=== PATIENT | male | born 1940 | race Caucasian/White ===

== ENCOUNTER → 2017-03-04 | Outpatient (CLI) | payer MEDICARE, OTHER ==
[~2017-03-04] MED LIST: AMBIEN 5 MG TABL5 M1 PO; ASPIR 8181 MG PO; ASPIRIN EC325 M1; ASPIRIN81 M2 PO; ATORVASTATIN CA10 MG PO; BUSPIRONE HCL10 MG PO; CARDIZEM CD360 MG PO; CELEXA 20 MG TA20 MG PO; CENTRUM SILVER1 EAC4 PO; CO Q-10100 MG PO; COQ-10100 MG PO; COZAAR 25 MG TA25 M2 PO; FLOMAX0.4 MG PO; HYDROCODON-ACE1 EAC7 PO; KEFLEX500 MG PO; LASIX 20 MG TAB20 MG PO; LASIX 40 MG TAB40 M1 PO; LASIX 40 MG TAB40 M2 PO; LIPITOR40 MG PO; LOPRESSOR25 PO; MICARDIS 20MG T20 M1 PO; MICARDIS40 MG PO; NEURONTIN 300300 M1 PO; NORCO 5-325 TA1 EACH PO; OMEGA 3-6-9 CO1 EACH PO; ONDANSETRON HCL4 M2 PO; OXYCODONE HCL 55 MG; PACERONE 200 M200 M1 PO; PRILOSEC 20 MG20 MG PO; PROBIOTIC1 EAC1 PO; PROZAC10 MG PO; REQUIP 0.25 M0.25 MG PO; XARELTO10 M1
== END ==
LOC: M.MRI 02-25 13:27
DX: M48.061 Spinal stenosis, lumbar region without neurogenic claudication (principal); M51.26 Other intervertebral disc displacement, lumbar region; M47.896 Other spondylosis, lumbar region; M41.86 Other forms of scoliosis, lumbar region; I25.10 Atherosclerotic heart disease of native coronary artery without angina pectoris; I48.91 Unspecified atrial fibrillation; I10 Essential (primary) hypertension; E78.5 Hyperlipidemia, unspecified; Z86.73 Personal history of transient ischemic attack (TIA), and cerebral infarction without residual deficits

== ENCOUNTER 2018-03-18 14:46 | Emergency (ER) | payer MEDICARE, OTHER ==
[~2018-03-18] VITALS: Ht 167.6 cm; Wt 87.5 kg
[2018-03-18 16:30] VITALS: BP 149/66
== END 2018-03-18 16:30 | disposition home or self-care (01) ==
LOC: M.ERS 14:46
DX: S01.01XA Laceration without foreign body of scalp, initial encounter (principal); I10 Essential (primary) hypertension; K21.9 Gastro-esophageal reflux disease without esophagitis; F32.9 Major depressive disorder, single episode, unspecified; Z86.73 Personal history of transient ischemic attack (TIA), and cerebral infarction without residual deficits; Z98.890 Other specified postprocedural states; Z96.652 Presence of left artificial knee joint; Z96.649 Presence of unspecified artificial hip joint; W01.198A Fall on same level from slipping, tripping and stumbling with subsequent striking against other object, initial encounter; Y92.009 Unspecified place in unspecified non-institutional (private) residence as the place of occurrence of the external cause; Y93.89 Activity, other specified; Y99.8 Other external cause status

== ENCOUNTER 2019-01-10 11:48 | Observation (INO) | payer MEDICARE, OTHER ==
[2019-01-10] VITALS (12 sets, daily range): BP systolic 133–177; BP diastolic 69–118
[~2019-01-10] VITALS: Ht 167.6 cm; Wt 96.6 kg
--- NOTE | ~2019-01-10 | H ---
[address] [address] HISTORY AND PHYSICAL Name: DEMETRICE PAYNE Room: [address] Florentin Sarah#: [id number] Admission: 01/10/19 Attend Phys: Marcin Vasques MD, Discharge: 01/11/19 Date of : 44 Report #: [id number] THIS REPORT FOR: //name// Please refer to the History and Physical performed in the physician's office. By: [id number] Records Staff ALEXIA /SARA
[~2019-01-10 11:48] MED LIST changes: +NORVASC 2.5 MG2.5 M1 PO; -OMEGA 3-6-9 CO1 EACH PO; +OMEGA 3-6-9 CO400 MG PO; +PROZAC10 M1 PO
[2019-01-10 13:18] LABS: HEMOGLOBIN 16.7 gm/dL (14.0-18.0); MCH 30.7 pg (26.0-34.0); MCHC 34.1 g/dL (28.0-37.0); MCV 90.2 fL (80.0-100.0); MPV 9.9 fl. (7.2-11.1); RBC 5.44 mil/uL (4.50-6.00); RDW-CV 13.8 % (10.5-14.5); WBC 11.7 thou/uL (4.0-11.0)
[2019-01-10 13:30] LABS: ANION GAP 11 mmol/L (7-16); BUN 17 mg/dL (7-18); CHLORIDE 102 mmol/L (98-107); CO2 24 mmol/L (21-32); CREATININE 1.2 mg/dL (0.6-1.3); GLUCOSE 90 mg/dL (70-99); POTASSIUM 4.6 mmol/L (3.5-5.1); SODIUM 137 mmol/L (136-145)
[2019-01-10 13:32] LABS: APTT 25.2 Seconds (25.0-31.3); PROTIME 10.6 Seconds (9.20-11.50)
[2019-01-10 13:35] LABS: ALBUMIN 3.7 g/dL (3.4-5.0); ALKALINE PHOSPHATASE 84 U/L (46-116); CHOLESTEROL 185 mg/dL (<200); HDL CHOLESTEROL 39 mg/dL (>40); LDL CHOLESTEROL 114 mg/dL (<100); SGOT 25 U/L (15-37); SGPT 31 U/L (30-65); TC:HDL 4.7 Ratio (Not establshd); TOTAL BILIRUBIN 0.7 mg/dL (<0.1-1.0); TOTAL PROTEIN 7.5 g/dL (6.4-8.2); TRIGLYCERIDE 161 mg/dL (<150); VLDL 32 mg/dL (<40)
[2019-01-10 13:37] LABS: SERUM ASSESSMENT Clear
[2019-01-11] VITALS (7 sets, daily range): BP systolic 139–154; BP diastolic 60–85
[2019-01-11 04:34] LABS: HEMATOCRIT 48.9 % (42.0-52.0); HEMOGLOBIN 16.5 gm/dL (14.0-18.0); MCH 30.6 pg (26.0-34.0); MCHC 33.7 g/dL (28.0-37.0); MCV 90.9 fL (80.0-100.0); MPV 9.2 fl. (7.2-11.1); RBC 5.38 mil/uL (4.50-6.00); RDW-CV 13.3 % (10.5-14.5); WBC 13.2 thou/uL (4.0-11.0)
[2019-01-11 05:04] LABS: ALBUMIN 3.3 g/dL (3.4-5.0); CALCIUM 9.4 mg/dL (8.5-10.1); CREATININE 1.4 mg/dL (0.6-1.3); POTASSIUM 4.8 mmol/L (3.5-5.1); TOTAL BILIRUBIN 1.3 mg/dL (<0.1-1.0); TOTAL PROTEIN 7.1 g/dL (6.4-8.2); TROPONIN-I LEVEL 0.48 ng/mL (<0.06)
--- NOTE | 2019-01-11 08:05 | NUR ---
ASSUMED PATIENT CARE AT 1900. ASSESSMENT COMPLETED CHARTED. PATIENT IS SB/1D ON THE MONITOR. RIGHT GROIN DRESSING IS CDI. HOURLY ROUNDING IN PLACE FOR PAIENT SAFETY. CLWR.
--- NOTE | 2019-01-11 10:59 | EKG ---
[place] [address] ELECTROCARDIOGRAM REPORT Name: DEMETRICE PAYNE Room: [address]#: [id number] Admission: 01/10/19 Attend Phys: Marcin Vasques MD, Discharge: Date of : 42 Report #: [id number] THIS REPORT FOR: //name// [place] Test Date: 2019-01-10 Test Time: 13:33:07 Pat Name: DEMETRICE PAYNE Department: Room: [facility] Gender: M Junior Marketing Associate: : 1940 Requested By: Marcin Vasques Order Number: [id number] Yovana MD: Darren Gonzalez Measurements Intervals [place] Rate: 57 P: 27 VA: 243 QRS: -9 QRSD: 90 T: 65 QT: 461 QTc: 449 Interpretive Statements Sinus rhythm Premature atrial complexes with aberrant conduction Prolonged VA interval Compared to ECG 03/05/2016 18:07:31 Atrial premature complex(es) now present T-wave abnormality no longer present Electronically Signed On 01-11-2019 10:59:27 CHEMICAL PUMPER by Darren Gonzalez [email or web address] <ELECTRONICALLY SIGNED> By: Darren Gonzalez MD, FACC 01/11/19 1059 1333 1333 Darren Gonzalez MD, FACC /EPI
--- NOTE | 2019-01-11 11:04 | EKG ---
[place] [address] ELECTROCARDIOGRAM REPORT Name: DEMETRICE PAYNE Room: [address]R.#: [id number] Admission: 01/10/19 Attend Phys: Marcin Vasques MD, Discharge: Date of : 42 Report #: [id number] THIS REPORT FOR: //name// [facility] Test Date: 2019-01-11 Test Time: 04:02:03 Pat Name: DEMETRICE PAYNE Department: Room: [facility] Gender: M Hospice Art Therapist: JY : 1940 Requested By: Marcin Vasques Order Number: [id number] Yovana MD: Darren Gonzalez Measurements Intervals [place] Rate: 74 P: 19 MN: 246 QRS: -9 QRSD: 93 T: 78 QT: 411 QTc: 456 Interpretive Statements Sinus rhythm Prolonged [place] interval Probable left atrial enlargement Compared to ECG 03/05/2016 18:07:31 T-wave abnormality no longer present Electronically Signed On 01-11-2019 11:03:47 CARPENTER HELPER MAINTENANCE by Darren Gonzalez [email or web address] <ELECTRONICALLY SIGNED> By: Darren Gonzalez MD, [facility] 01/11/19 1103 0402 040 Darren Gonzalez MD, [facility] /EPI
[2019-01-11] MEDS ORDERED: COLACE100 MG PO ×2 (14:59→15:01)
[2019-01-11] MEDS ORDERED: BRILINTA90 MG PO (15:02)
--- NOTE | 2019-01-11 15:49 | NUR ---
IV AND TELE DISCONTINUED. PT AND SPOUSE UNDERSTAND ALL FOLLOW UP ORDERS, WILL DISCHARGE TO HOME.
--- NOTE | 2019-01-13 13:13 | CARD ---
[address] [address] CARDIAC CATH REPORT Name: DEMETRICE PAYNE Room: [address] Florentin Sarah#: [id number] Admission: 01/10/19 Attend Phys: Marcin Vasques MD, Discharge: 01/11/19 Date of : 42 Report #: [id number] THIS REPORT FOR: //name// APPROVED REPORT Study performed: 01/10/2019 16:20:29 Patient Details Patient Status: OP Room #: The patient is a 78 year-old male Event Personnel Marcin Vasques Leather Grainer, Steph Pandya Rolled Materials Worker, Moose Pal PROJECT ASST Scrub, Cori Lester RTR Monitor, Sheila Espinal Rolled Materials Worker Procedures Performed Art Access - R femoral artery Left Heart Cath Coronaries, Bypass Grafts SANDY Place w/wo Plasty Single RCA Hemostasis w/ Angioseal Indication Unstable angina Risk Factors Hypercholesterolemia, Hypertension Previous Procedures/Diagnoses Previous CABG Admission/Lab Medications/Medications given during procedure Angiomax bolus and infusion Procedure Narrative The patient was brought electively to the Cardiac Catheterization Laboratory and was prepped and draped in a sterile manner. The right femoral was infiltrated with 2% Lidocaine subcutaneous anesthesia. A Goodrich 6 FR sheath was inserted into the right femoral artery. Coronary angiography was performed using coronary diagnostic catheters. The right coronary system was accessed and visualized with a Diagnostic 3 DRC 6 Fr catheter. The left coronary system was accessed and visualized with a Diagnostic JL 4 6 Fr catheter. The left ventricle was accessed and visualized with a Diagnostic Pig 6 Fr catheter. Left ventricular/Aortic Valve gradient assessed via catheter pullback. [place] [address] CARDIAC CATH REPORT Name: DEMETRICE PAYNE Room: [address]#: [id number] Admission: 01/10/19 Attend Phys: Marcin Vasques MD, Discharge: 01/11/19 Date of : 42 Report #: [id number] projection. Pre-demployment femoral angiogram was performed . Closure device was deployed with a Fr Angioseal STS 6Fr. The patient tolerated the procedure well and there were no complications associated with the procedure. There was no hematoma. SVG was accessed and visualized with a Diagnostic JR 4 6 Fr catheter.SVG going to the Circ. LIV was accessed and visualized with a Diagnostic IM 6 Fr catheter. GARY going to LAD. Intraoperative Conscious Sedation Sedation start time: 16:50 Case end Time: 18:02 Fentanyl 50 mcg Versed 2 mg Fluoro Time: 24.7 minutes Dose: DAP [id number] cGycm2 3381 mGy Contrast Type and Amount: Visipaque 405 ml [place] Artery Percent Stenosis #1 widely patent GARY graft to the LAD #2 patent saphenous vein graft to marginal branch of the circumflex with 60% tubular proximal graft narrowing Diagnostic Cath Left Main 0% narrowing LAD 100% mid vessel occlusion Circumflex 100% narrowing of the marginal system 90% focal stenosis of the midportion of the posterior division of the circumflex Right Coronary Large dominant vessel with 95% ostial proximal stenosis 75% tubular mid vessel narrowing 80% focal distal narrowing and 90% narrowing of a posterolateral branch of the distal right coronary artery Left Ventriculography The left ventricle is normal in size with normal contractility. The left ventricular ejection fraction is estimated to be 55%. Left ventricular wall motion abnormalities are not present. There is no mitral insufficiency. Hemodynamics The aortic pressure is 140/55 mmHg with a mean of 93 mmHg. The left ventricular pressure is 153/-3 mmHg with a mean of mmHg. The left ventricular end diastolic pressure is 15 mmHg. There was no gradient across the aortic valve upon pullback[place] [address] CARDIAC CATH REPORT Name: DEMETRICE PAYNE Room: [address]#: [id number] Admission: 01/10/19 Attend Phys: Marcin Vasques MD, Discharge: 01/11/19 Date of : 42 Report #: [id number] Anticoagulation was achieved with Angiomax Drip. Patient was preloaded with Angiomax IV 14 ml. Percutaneous coronary intervention was performed on the ostial/proximal right coronary artery. The lesion stenosis prior to intervention was 95% with ADITI 3 flow. A 6FR 3DRC SH Guide Catheter was used to engage the right ostium. A IG: ProwaterFlex 180CM Interventional Guidewire was used to cross the lesion. BALLOON DILATION A Balloon catheter Mini Trek RX 2.0 X 12 was inserted and inflated up to 16.00atm for 12seconds. Additional Inflation: 20.00atm for 11seconds. Additional Inflation: 20.00atm for 10seconds. Trek RX 2.5 x 15 inserted/inflated for 9 sec @ 14 ZAIN, 9 sec @ 20 ZAIN, and 10 sec @ 20 ZAIN STENT DEPLOYMENT A drug-eluting stent Scribdronik Orsiro 3.0 x 15 was inserted and inflated up to 16.00atm for 13seconds. Additional Inflation: 18.00atm for 14seconds. POST STENT DEPLOYMENT BALLOON DILATION A Balloon catheter NC TREK RX 3.5X12 was inserted and inflated up to 16.00atm for 8seconds. Additional Inflation: 16.00atm for 9seconds. Additional Inflation: 18.00atm for 9seconds. Final angiography reveals 10 % stenosis with ADITI 3 flow. COMMENTS The procedure was technically complex by virtue of the aorto-ostial complex lesion requiring extensive lesion preparation and precise stent deployment localization PCI Technique Lesion 2 Percutaneous Coronary Intervention was performed on the mid right coronary artery. Patient was preloaded with Angiomax IV 14 ml. The lesion stenosis prior to intervention was 75% with ADITI 3 flow. A 6FR 3DRC SH Guide Catheter was used to engage the right ostium. A IG: ProwaterFlex 180CM Interventional Guidewire was used to cross the lesion. Balloon Dilation A Balloon catheter Trek RX 2.5 X 15 was inserted and inflated up to 16.00atm for 11seconds. Additional Inflation: 16.00atm for 9seconds. [place] [address] CARDIAC CATH REPORT Name: DEMETRICE PAYNE Room: [address] Florentin LuisanaDeborahHaimDeborah#: [id number] Admission: 01/10/19 Attend Phys: Marcin Vasques MD, Discharge: 01/11/19 Date of : 42 Report #: [id number] Stent Deployment A drug-eluting stent Biotronik Orsiro 2.75 x 35 was inserted and inflated up to 15.00atm for 21seconds. Additional Inflation: 18.00atm for 14seconds. Post Stent Deployment Balloon Dilation A Balloon catheter NC Trek RX 3.0 X 12 was inserted and inflated up to 12.00atm for 8seconds. Additional Inflation: 16.00atm for 6seconds. Additional Inflation: 16.00atm for 8seconds. Final angiography reveals 0 % stenosis with ADITI 3 flow. Conclusion #1 significant multivessel coronary arteries characterized by the following: A 100% mid LAD occlusion B 100% occlusion of the marginal branch of the circumflex with 90% focal mid circumflex narrowing C 95% aorto- ostial stenosis of the dominant right coronary artery with 75% tubular mid vessel narrowing 80% focal distal stenosis and 90% posterolateral branch narrowing #2 graft study characterized by the following: A widely patent GARY graft to the LAD with faint collateralization to the distal right coronary artery B patent saphenous vein graft to the marginal branch of the circumflex with 60% proximal graft narrowing #3 normal left ventricular systolic function, estimate ejection fraction being 55% #4 successful percutaneous coronary intervention with deployment of sequential drug-eluting stents at the sites of 95% aorto- ostial right coronary stenosis and 75% tubular mid right coronary stenosis with 10 and 0% residual narrowings Recommendations Cardiac Risk Reduction Program [facility] Therapy [address] [address] CARDIAC CATH REPORT Name: DEMETRICE PAYNE Paige Room: [address] MDeborahRDeborah#: [id number] Admission: 01/10/19 Attend Phys: Marcin Vasques MD, Discharge: 01/11/19 Date of : 42 Report #: [id number] Medications Administered Aspirin (any) Ticagrelor Diagnostic Cath Approved by: Marcin Vasques MD Date/Time: <ELECTRONICALLY SIGNED> By: Marcin Vasques MD, FACC 01/13/191311 11 11Marcin Vasques MD, FACC /INF
--- NOTE | 2019-01-13 15:31 | D ---
[address] [address] DISCHARGE SUMMARY Name: DEMETRICE PAYNE Room: [address] Florentin Sarah#: [id number] Admission: 01/10/19 Attend Phys: Marcin Vasques MD, Discharge: 01/11/19 Date of : 42 Report #: [id number] THIS REPORT FOR: //name// CC: Marcin Burch DATE OF SERVICE: 01/11/2019 FINAL DISCHARGE DIAGNOSES: 1. Unstable angina. 2. Coronary artery disease. 3. Status post coronary artery bypass grafting remotely. 4. Status post percutaneous coronary intervention of the right coronary artery on 01/10/2019. 5. Hypertension. 6. Paroxysmal atrial fibrillation. 7. Hyperlipidemia. 8. History of cerebrovascular accident. PROCEDURES: On 01/10/2019 -- left heart catheterization, left ventriculography, selective coronary arteriography, graft study, and percutaneous coronary intervention to the right coronary artery with stents deployed in the proximal and mid right coronary artery. HOSPITAL COURSE: The patient is a very pleasant 78-year-old male with a history of coronary artery disease, status post remote coronary artery bypass grafting. He has hypertension, hyperlipidemia and history of cerebrovascular accident as well as paroxysmal atrial fibrillation. Recently, he has noted chest discomfort and dyspnea on exertion, typical of his prior ischemic syndrome. In this setting, Dr. Rivera recommend catheterization, which was undertaken on 01/10/2019. That study revealed totally occluded LAD, 80-90% stenosis in the mid portion of the posterior division of the circumflex with a patent vein graft to the marginal branch of the circumflex, widely patent GARY graft to the LAD. Right coronary artery demonstrated 95% ostial stenosis with 70-80% mid vessel narrowing. Given this data, I performed percutaneous coronary intervention, deploying drug-eluting stents in the mid and proximal right coronary artery with 10% residual narrowing at both sites following stent deployment and ADITI 3 flow of the distal vessel. Troponin zeeshan inconsequentially to 0.48. Laboratory data on 01/11 revealed sodium 140, potassium 4.8, BUN 18, creatinine 1.4. Hemoglobin 16.5, white blood cell count 13,200 with 213,000 [place] [address] DISCHARGE SUMMARY Name: KERRYDEMETRICE Room: [address]#: [id number] Admission: 01/10/19 Attend Phys: Marcin Vasques MD, Discharge: 01/11/19 Date of : 42 Report #: [id number] The patient ambulated in the hallways without difficulty. DISCHARGE MEDICATIONS: He was discharged to home on the following medications: Amlodipine 5 mg daily, aspirin 81 mg at bedtime, atorvastatin 10 mg daily, buspirone 5 mg b.i.d., fish oil 1 tablet daily, Prozac 10 mg at bedtime, gabapentin 300 mg t.i.d., metoprolol 25 mg b.i.d., multivitamin [place] Silver 1 tablet daily, omeprazole 20 mg daily, ropinirole 0.25 mg at bedtime, telmisartan 20 mg daily, ticagrelor 90 mg b.i.d., Coenzyme Q 200 mg daily, zolpidem 5 mg at bedtime. The patient is tentatively scheduled for recatheterization on 01/26/2019 with strong consideration of intervention to the posterior division of the circumflex. These issues were discussed in detail with the patient and family. He is discharged to home in stable condition on the aforementioned medications with followup as described above. <ELECTRONICALLY SIGNED> By: Marcin Vasques MD, FACC 01/13/19 1531 1441 1517Marcin Vasques MD, FACC /nt
== END 2019-01-11 16:00 | disposition home or self-care (01) ==
LOC: M.CL 11:48 → M.TBA-ER 18:21 → M.2W 18:30
PROVIDERS: ADMIT Internal Medicine
DX: I25.110 Atherosclerotic heart disease of native coronary artery with unstable angina pectoris (principal); I48.0 Paroxysmal atrial fibrillation; I10 Essential (primary) hypertension; E78.5 Hyperlipidemia, unspecified; Z86.73 Personal history of transient ischemic attack (TIA), and cerebral infarction without residual deficits; Z79.82 Long term (current) use of aspirin; Z79.899 Other long term (current) drug therapy

== ENCOUNTER 2019-01-26 08:38 | Observation (INO) | payer MEDICARE, OTHER ==
[2019-01-26] VITALS (14 sets, daily range): BP systolic 112–149; BP diastolic 52–83
[~2019-01-26] VITALS: Ht 165.1 cm; Wt 88.5 kg
--- NOTE | ~2019-01-26 | H ---
[address] [address] HISTORY AND PHYSICAL Name: DEMETRICE PAYNE Room: [address] Florentin Sarah#: [id number] Admission: 01/26/19 Attend Phys: Marcin Vasques MD, Discharge: 01/27/19 Date of : 44 Report #: [id number] THIS REPORT FOR: //name// Please refer to the History and Physical performed in the physician's office. By: 1455Medical Records Staff ALEXIA /SARA
[~2019-01-26 08:38] MED LIST changes: +BRILINTA90 MG PO; +COLACE100 MG PO; -PRILOSEC 20 MG20 MG PO; +PRILOSEC OTC20 MG PO; +PROZAC 10 MG CA10 MG PO; -PROZAC10 MG PO
[2019-01-26 10:43] LABS: HEMATOCRIT 47.9 % (42.0-52.0); HEMOGLOBIN 16.7 gm/dL (14.0-18.0); MCH 31.1 pg (26.0-34.0); MCHC 34.8 g/dL (28.0-37.0); MCV 89.4 fL (80.0-100.0); MPV 9.3 fl. (7.2-11.1); RBC 5.36 mil/uL (4.50-6.00); RDW-CV 13.4 % (10.5-14.5); WBC 10.4 thou/uL (4.0-11.0)
[2019-01-26 10:52] LABS: ANION GAP 11 mmol/L (7-16); BUN 20 mg/dL (7-18); CALCIUM 8.7 mg/dL (8.5-10.1); CHLORIDE 104 mmol/L (98-107); CO2 22 mmol/L (21-32); CREATININE 1.3 mg/dL (0.6-1.3); GLUCOSE 97 mg/dL (70-99); POTASSIUM 4.2 mmol/L (3.5-5.1); SODIUM 137 mmol/L (136-145)
[2019-01-26 10:54] LABS: APTT 26.1 Seconds (25.0-31.3); INR 1.1
[2019-01-26 10:57] LABS: CHOLESTEROL 138 mg/dL (<200); HDL CHOLESTEROL 37 mg/dL (>40); LDL CHOLESTEROL 80 mg/dL (<100); SERUM ASSESSMENT Clear; TC:HDL 3.7 Ratio (Not establshd); TRIGLYCERIDE 107 mg/dL (<150); VLDL 21 mg/dL (<40)
--- NOTE | 2019-01-26 14:15 | EKG ---
[place] [address] ELECTROCARDIOGRAM REPORT Name: DEMETRICE PAYNE Room: [address] M.R.#: [id number] Admission: 01/26/19 Attend Phys: Marcin Vasques MD, Discharge: Date of : 42 Report #: [id number] THIS REPORT FOR: //name// [facility] Test Date: 2019-01-26 Test Time: 09:33:53 Pat Name: DEMETRICE PAYNE Department: Room: [facility] Gender: M Humanities Coordinator: : 1940 Requested By: Marcin Vasques Order Number: [id number] Yovana MD: Marcin Vasques Measurements Intervals [place] Rate: 63 P: 29 NM: 258 QRS: -16 QRSD: 97 T: 41 QT: 409 QTc: 419 Interpretive Statements Sinus rhythm PVC is noted Prolonged [place] interval Inferior infarct, old Baseline wander in lead(s) V3 Compared to ECG 01/11/2019 04:02:03 Myocardial infarct finding now suggested Electronically Signed On 01-26-2019 14:14:52 AUTOMOTIVE SALES MANAGER by Marcin Vasques [email or web address] <ELECTRONICALLY SIGNED> By: Marcin Vasques MD, [facility] 01/26/19 1414 0933 0933 Marcin Vasques MD, [facility] /EPI
--- NOTE | 2019-01-26 14:19 | EKG ---
[place] [address] ELECTROCARDIOGRAM REPORT Name: DEMETRICE PAYNE Room: [address] M.R.#: [id number] Admission: 01/26/19 Attend Phys: Marcin Vasques MD, Discharge: Date of : 42 Report #: [id number] THIS REPORT FOR: //name// [facility] Test Date: 2019-01-26 Test Time: 13:26:02 Pat Name: DEMETRICE PAYNE Department: Room: [facility] Gender: M Trailer Driver: : 1940 Requested By: Marcin Vasques Order Number: [id number] Yovana MD: Marcin Vasques Measurements Intervals [place] Rate: 60 P: 6 [place]: 247 QRS: -4 QRSD: 92 T: 69 QT: 441 QTc: 441 Interpretive Statements Sinus rhythm Prolonged [place] interval Borderline T wave abnormalities Compared to ECG 01/11/2019 04:02:03 T-wave abnormality now present Electronically Signed On 01-26-2019 14:18:56 DELIVERY CREW MEMBER by Maricn Vasques [email or web address] <ELECTRONICALLY SIGNED> By: Marcin Vasques MD, [facility] 01/26/19 1418 1326 132 Marcin Vasques MD, FAC /EPI
--- NOTE | 2019-01-26 15:00 | CARD ---
[address] [address] CARDIAC CATH REPORT Name: DEMETRICE PAYNE Room: [address] Florentin Sarah#: [id number] Admission: 01/26/19 Attend Phys: Marcin Vasques MD, Discharge: Date of : 44 Report #: [id number] THIS REPORT FOR: //name// APPROVED REPORT Study performed: 01/26/2019 10:59:[address] Vasques Procedures Performed Left heart catheterization selective coronary arteriography and percutaneous coronary intervention with deployment of a drug-eluting stent in the mid circumflex Indication Dyspnea, Positive stress test Risk Factors Hypercholesterolemia, Hypertension Previous Procedures/Diagnoses Previous CABGPrevious PCI Admission/Lab Medications/Medications given during procedure Angiomax bolus and infusion Procedure Narrative The patient was brought electively to the Cardiac Catheterization Laboratory and was prepped and draped in a sterile manner. The right femoral was infiltrated with subcutaneous anesthesia. A 6 [place] sheath was inserted into the right femoral artery. Coronary angiography was performed using coronary diagnostic catheters. The right coronary system was accessed and visualized with a Diagnostic catheter. The left coronary system was accessed and visualized with a Diagnostic catheter. The left ventricle was accessed and visualized with a Diagnostic catheter. Left ventricular/Aortic Valve gradient assessed via catheter pullback. Pre-demployment femoral angiogram was performed . Hemostasis was obtained with manual pressure following sheath removal without any complications. [place] Artery Percent Stenosis #1 widely patent GARY graft to the LAD as per recent cineangiogram [facility] [address] [place] [address] CARDIAC CATH REPORT Name: KERRYDEMETRICE Paige Room: [address]#: [id number] Admission: 01/26/19 Attend Phys: Marcin Vasques MD, Discharge: Date of : 44 Report #: [id number] #2 previously defined patent vein graft to a marginal branch of the circumflex with 50% proximal graft narrowing Diagnostic Cath Left Main 0% narrowing LAD 100% mid vessel occlusion Circumflex 90% mid circumflex stenosis with total occlusion of the marginal system Right Coronary 10% proximal right coronary narrowing with widely patent proximal and mid right coronary stents; ; there was 70% distal right coronary narrowing with 80% posterolateral branch stenosis Hemodynamics The aortic pressure is 120/70 mmHg with a mean of 82 mmHg. The left ventricular end diastolic pressure is 8 mmHg. There was no gradient across the aortic valve upon pullback. PCI Technique Lesion Anticoagulation was achieved with Angiomax. Percutaneous coronary intervention was performed on the mid circumflex artery segment. The lesion stenosis prior to intervention was 90% with ADITI 3 flow. A 6 [place] XB3 Guide Catheter was used to engage the left ostium. A 014 prowater flex Interventional Guidewire was used to cross the lesion. BALLOON DILATION A Balloon catheter 1.5x12 trek was inserted and inflated up to 18atm for 15seconds. STENT DEPLOYMENT A drug-eluting stent 2.0x12 aleksander was inserted and inflated up to 8atm for 12seconds. Final angiography reveals 0 % stenosis with ADITI 3 flow. Conclusion #1 significant coronary artery disease characterized by the following: A 100% mid LAD occlusion B 90% stenosis of the midportion of the nondominant circumflex with [place] [address] CARDIAC CATH REPORT Name: DEMETRICE PAYNE Room: [address]#: [id number] Admission: 01/26/19 Attend Phys: Marcin Vasques MD, Discharge: Date of : 44 Report #: [id number] C 10% proximal right coronary narrowing with widely patent proximal and mid right coronary stents; there was 70% distal right coronary stenosis and 80% posterolateral branch stenosis #2 previously defined widely patent GARY graft to the LAD and a patent saphenous vein graft to marginal branch of the circumflex with 50% proximal graft narrowing #3 normal left-sided hemodynamics study #4 successful percutaneous coronary intervention with deployment of a drug-eluting stent at the site of 90% mid circumflex narrowing with 0% residual narrowing and ADITI-3 flow to the distal vessel Recommendations Cardiac Risk Reduction Program Medications Administered Aspirin (any) Clopidogrel Diagnostic Cath Approved by: Marcin Vasques MD Date/Time: 01/26/2019 14:59:03 <ELECTRONICALLY SIGNED> By: Marcin Vasques MD, FACC 01/26/19 1500 1500 1500Jogeri Vasques MD, FAC /INF
[2019-01-27] VITALS: BP 134/71
[2019-01-27 04:00] VITALS: BP 122/70
[2019-01-27 05:03] LABS: HEMATOCRIT 43.7 % (42.0-52.0); MCH 31.1 pg (26.0-34.0); MCHC 34.3 g/dL (28.0-37.0); MCV 90.5 fL (80.0-100.0); MPV 10.5 fl. (7.2-11.1); RBC 4.83 mil/uL (4.50-6.00); RDW-CV 13.5 % (10.5-14.5); WBC 10.2 thou/uL (4.0-11.0)
[2019-01-27 05:24] LABS: ALBUMIN 2.9 g/dL (3.4-5.0); CALCIUM 8.2 mg/dL (8.5-10.1); CREATININE 1.2 mg/dL (0.6-1.3); POTASSIUM 4.1 mmol/L (3.5-5.1); TOTAL PROTEIN 6.2 g/dL (6.4-8.2); TROPONIN-I LEVEL 0.14 ng/mL (<0.06)
--- NOTE | 2019-01-27 06:38 | NUR ---
PT RESTED T/O NIGHT COMFORTABLY W/O COMPLAINTS. DRESSING CDI. PROGRESSING TOWARDS GOALS APPROPRIATELY. CALL LIGHT IN REACH
[2019-01-27 07:00] VITALS: BP 150/82
[2019-01-27 10:57] VITALS: BP 112/68
[2019-01-27] MEDS ORDERED: PLAVIX 75 MG TA75 MG PO (11:17)
[2019-01-27 11:18] VITALS: BP 112/68
--- NOTE | 2019-01-27 11:24 | NUR ---
cm completed initial assessment to discuss d/c planning. pt present at time of assessment. pt is living at home w/. semi-active doing chores around the house. pt is independent w/cares. pt stated he has driven in 2 wks, but plans to drive himself to his next doctor's appt. pt has hx w/SMV and OGNF. pt has no desire to return to snf, pt stated they prefer outpatient at [facility] over inpatient. pt has cane and walker. and a good support system.
--- NOTE | 2019-01-27 12:24 | NUR ---
VSS, ASSUMED CARE IN THE AM, ASSESSMENT PERFOMRED AND CHARTED FALL PRECAUTIONS IN [place] AND CALL LIGHT IN REACH, PT IS A&O4 AND UP AD KEVIN, PT IS TRACING SR/SB ON THE MONITOR, RIGHT GROIN IS C/D/I, PT DENIES ANY PAIN, AT THIS TIME PT HAS BEEN DISCHARGED PT WAS GIVEN DISCHARGE PAPERS, AND MEDICATION SCRIPTS PT DENIES ANY QUESTIONS AND WAS TAKEN OUT VIA WHEELCHAIR TO CAR.
--- NOTE | 2019-01-27 12:56 | EKG ---
[place] [address] ELECTROCARDIOGRAM REPORT Name: DEMETRICE PAYNE Room: [address]#: [id number] Admission: 01/26/19 Attend Phys: Marcin Vasques MD, Discharge: 01/27/19 Date of : 44 Report #: [id number] THIS REPORT FOR: //name// [facility] Test Date: 2019-01-27 Test Time: 05:20:17 Pat Name: DEMETRICE PAYNE Department: Room: [facility] Gender: M Stores Assistant: [id number] : 1940 Requested By: Marcin Vasques Order Number: [id number] Reading MD: Marcin Vasques Measurements Intervals [place] Rate: 66 P: 33 [place]: 255 QRS: -15 QRSD: 94 T: 11 QT: 434 QTc: 455 Interpretive Statements Sinus rhythm Prolonged [place] interval Inferior infarct, old Compared to ECG 01/26/2019 13:26:02 Myocardial infarct finding now present T-wave abnormality persists Electronically Signed On 01-27-2019 12:56:17 MEDICAL SCREENER by Marcin Vasques [email or web address] <ELECTRONICALLY SIGNED> By: Marcin Vasques MD, [facility] 01/27/19 1256 0520 Marcin Vasques MD, [facility] /EPI
--- NOTE | 2019-01-28 15:27 | D ---
[address] [address] DISCHARGE SUMMARY Name: DEMETRICE PAYNE Room: [address] Florentin Sarah#: [id number] Admission: 01/26/19 Attend Phys: Marcin Vasques MD, Discharge: 01/27/19 Date of : 44 Report #: [id number] THIS REPORT FOR: //name// CC: Marcin Burch DATE OF SERVICE: 01/27/2019 FINAL DISCHARGE DIAGNOSES: 1. Unstable angina. 2. Coronary artery disease. 3. Status post coronary artery bypass grafting. 4. Status post prior percutaneous coronary intervention of the right coronary artery and percutaneous coronary intervention to the circumflex on 01/26/2019. 5. Hypertension. 6. Paroxysmal atrial fibrillation. 7. Hyperlipidemia. 8. History of cerebrovascular accident. PROCEDURES: On 01/26/2019 -- left heart catheterization, selective coronary arteriography and percutaneous coronary intervention to the mid-circumflex. The patient is a pleasant 78-year-old male with complex coronary artery disease status post remote coronary artery bypass grafting and more recent percutaneous coronary intervention of the [place] right coronary artery. He had a patent GARY graft to the LAD and patent vein graft to marginal branch of the circumflex noted on prior catheterization. He also had 90% mid-circumflex stenosis noted on the prior cath, which was not approached in the acute setting. He underwent recatheterization on 01/26/2019, which revealed widely patent right coronary stents in the proximal midportion. He also had a persistent 90% mid-circumflex stenosis. I stented this with a 2.0 x 12 mm Darell drug-eluting stent with 0% residual narrowing and ADITI 3 flow of the distal vessel. He did well post-procedurally with an inconsequential increase in troponin to 0.14. Additional lab revealed sodium 139, potassium 4.1, BUN 18, creatinine 1.2, glucose 73. Hemoglobin 15.0, white blood cell count 10,200 with 187,000 platelets. He ambulated in the hallways without difficulty and was discharged to home on the following medications: Amlodipine 5 mg daily, aspirin 81 mg p.o. b.i.d., atorvastatin 10 mg daily, buspirone 5 mg b.i.d., clopidogrel 75 mg daily with a 600 mg stacey-procedural dose, docusate 100 mg daily, fish oil 400 mg daily, fluoxetine 10 mg at bedtime, gabapentin 300 mg t.i.d., metoprolol tartrate 25 mg b.i.d., multivitamin with mineral 1 tablet daily, omeprazole 20 mg daily, ropinirole or Requip 0.25 mg at bedtime, Coenzyme Q 200 mg daily, zolpidem 5 [place] [address] DISCHARGE SUMMARY Name: DEMETRICE PAYNE Room: [address] Florentin Sarah#: [id number] Admission: 01/26/19 Attend Phys: Marcin Vasques MD, Discharge: 01/27/19 Date of : 44 Report #: [id number] at bedtime as needed for sleep. The patient ambulated in the hallways without difficulty. The dyspnea noted in the past has remitted and I suspect this is related to the discontinuation of Brilinta and initiation of clopidogrel as a substitute for that. The patient has a followup scheduled with Jennifer Lopez on 02/18/2019 at 1300 and myself on 03/23/2019 at 1020 hours. Therefore, the patient is discharged to home in stable condition on the aforementioned medications with followup as iterated above. <ELECTRONICALLY SIGNED> By: Marcin Vasques MD, FACC 01/28/19 1527 0951 [id number] Vasques MD, FACC /nt
== END 2019-01-27 12:10 | disposition home or self-care (01) ==
LOC: M.CL 08:38 → M.TBA-CV 13:12 → M.2W 16:01
PROVIDERS: ADMIT Internal Medicine
DX: I25.119 Atherosclerotic heart disease of native coronary artery with unspecified angina pectoris (principal); I10 Essential (primary) hypertension; I48.0 Paroxysmal atrial fibrillation; E78.5 Hyperlipidemia, unspecified; Z86.73 Personal history of transient ischemic attack (TIA), and cerebral infarction without residual deficits

== ENCOUNTER 2019-06-25 03:05 | Inpatient (IN) | payer MEDICARE, OTHER ==
[~2019-06-25] VITALS: Ht 167.6 cm; Wt 90.3 kg
[2019-06-25] VITALS (7 sets, daily range): BP systolic 98–176; BP diastolic 36–83
[~2019-06-25 03:05] MED LIST changes: +PLAVIX 75 MG TA75 MG PO
[2019-06-25] MEDS ORDERED: IMDUR 30 MG TAB30 M1 PO (03:15)
[2019-06-25 03:54] LABS: ABSOLUTE LYMPHOCYTES 1.5 thou/uL (0.8-5.3); ABSOLUTE MONOCYTES 0.6 thou/uL (0.0-1.2); BASOPHILS 0.3 %; EOSINOPHILS 0.1 %; HEMATOCRIT 49.5 % (42.0-52.0); LYMPHOCYTES 11.6 %; MCH 30.9 pg (26.0-34.0); MCHC 34.4 g/dL (28.0-37.0); MCV 89.8 fL (80.0-100.0); MONOCYTES 4.3 %; MPV 9.9 fl. (7.2-11.1); NUCLEATED RBCS 0 /100WBC; PLATELET COUNT* 171 thou/uL (150-400); POLYS 83.7 %; RBC 5.51 mil/uL (4.50-6.00); RDW-CV 13.8 % (10.5-14.5); WBC 13.2 thou/uL (4.0-11.0)
[2019-06-25 04:05] LABS: CALCIUM 8.7 mg/dL (8.5-10.1); CREATININE 1.3 mg/dL (0.6-1.3); POTASSIUM 3.5 mmol/L (3.5-5.1)
[2019-06-25 04:15] LABS: ALBUMIN 3.5 g/dL (3.4-5.0); MAGNESIUM 1.4 mg/dL (1.8-2.4); TOTAL BILIRUBIN 0.7 mg/dL (<0.1-1.0)
[2019-06-25 04:16] LABS: INR 1.2; PROTIME 11.9 Seconds (9.20-11.50)
[2019-06-25 04:45] LABS: INFLUENZA A ANTIGEN Negative (Negative); INFLUENZA B ANTIGEN Negative (Negative)
[2019-06-25 13:10] LABS: CALCIUM 8.3 mg/dL (8.5-10.1); CREATININE 1.4 mg/dL (0.6-1.3); MAGNESIUM 2.3 mg/dL (1.8-2.4); POTASSIUM 3.9 mmol/L (3.5-5.1)
[2019-06-26 03:54] VITALS: BP 111/49
[2019-06-26 08:00] VITALS: BP 129/65
[2019-06-26 12:00] VITALS: BP 141/68
[2019-06-26 13:16] LABS: URINE BILIRUBIN NEGATIVE (Negative); URINE BLOOD 1+ (Negative); URINE CLARITY CLEAR; URINE COLOR YELLOW; URINE GLUCOSE-RANDOM NEGATIVE (Negative); URINE KETONES NEGATIVE (Negative); URINE LEUKOCYTES-REFLEX NEGATIVE (Negative); URINE NITRITE-REFLEX NEGATIVE (Negative); URINE PROTEIN NEGATIVE (Negative); URINE UROBILINOGEN 0.2 E.U./dl (0.2-1.0)
[2019-06-26 13:22] LABS: BACTERIA-REFLEX 1-9 Few /HPF (None Seen); CASTS None Seen /LPF (None Seen); CRYSTALS None Seen /LPF (None Seen); SQUAMOUS 0-3 Few /LPF (0-3); URINE RBC 0-2 Rare /HPF (0-2); URINE WBC-REFLEX 0-5 Rare /HPF (0-5)
--- NOTE | 2019-06-26 15:30 | EKG ---
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
[2019-06-26 16:00] VITALS: BP 134/50
[2019-06-26 21:11] VITALS: BP 149/63
[2019-06-27] VITALS: BP 138/68
[2019-06-27 04:00] VITALS: BP 144/65
[2019-06-27 08:30] VITALS: BP 141/64
[2019-06-27 12:00] VITALS: BP 137/61
[2019-06-27 17:00] VITALS: BP 143/78
[2019-06-27 18:34] LABS: CALCIUM 8.4 mg/dL (8.5-10.1); CREATININE 1.3 mg/dL (0.6-1.3); POTASSIUM 3.8 mmol/L (3.5-5.1)
[2019-06-27 18:37] LABS: PHOSPHORUS* 3.1 mg/dL (2.5-4.9)
[2019-06-27 20:40] VITALS: BP 128/69
[2019-06-28] VITALS: BP 132/61
[2019-06-28 04:00] VITALS: BP 120/56
--- NOTE | 2019-06-28 08:05 | CON ---
[address] [address] CONSULTATION Name: KERRYDEMETRICE Gibson Room: [address] IN M.R.#: [id number] Admission: 06/25/19 Attend Phys: Manisha Walter MD Discharge: Date of : 44 Report #: [id number] THIS REPORT FOR: //name// cc: Ciro Burch MD, Matthew W. MD ~ THIS REPORT FOR: //name// CC: Manisha Burch DATE OF SERVICE: 06/27/2019 INFECTIOUS DISEASE CONSULTATION ATTENDING PHYSICIAN: Manisha Walter MD REASON FOR EVALUATION: Pneumonitis, complicated by respiratory failure. The patient had initial negative COVID testing; repeat is pending. Was found to have pulmonary emboli as well. HISTORY OF PRESENT ILLNESS: Chart reviewed, the patient examined. This is a 78-year-old with extensive medical history, including known vasculopathy, previous strokes, aortocoronary bypass grafting, who had onset of dyspnea with fairly profound weakness the day before developed some fevers. Denied any significant gastrointestinal-related complaints. He was evaluated and was found to have a clear hypoxemia with O2 sat 83% on room air. He was placed on nonrebreather. Initial evaluation was undertaken. White count was slightly elevated and lactic acid within normal range. Was found to have elevated D-dimer at 4.5. Influenza antigen was negative as was screening coronavirus testing. CT of the chest did show bilateral segmental and subsegmental pulmonary emboli. Urinalysis was otherwise unremarkable. Blood cultures thus far are sterile. He is being ruled out with the 2nd testing for COVID-19. At this point, he has been afebrile. Vital signs have been relatively stable. Empirically placed on antimicrobials with ceftriaxone. He states he actually feels worse since admission. He noted had a nosebleed related to the collection of the nasopharyngeal sample. Finds it difficult to breathe. He is on 5 liters of nasal cannula. ALLERGIES: None known. CURRENT MEDICINES: Include nitroglycerin, morphine, ceftriaxone, apixaban, aspirin, fluoxetine, isosorbide mononitrate, amlodipine, metoprolol, atorvastatin, buspirone, p.r.n. analgesics, antiemetics. PAST MEDICAL HISTORY: Includes hypertension, reflux, depression, previous stroke with left foot drop, right carotid endarterectomy, bilateral cataracts, [place] [address] CONSULTATION Name: DEMETRICE PAYNE Room: [address]#: [id number] Admission: 06/25/19 Attend Phys: Manisha Walter MD Discharge: Date of : 42 Report #: [id number] left total knee replacement, aortocoronary bypass grafting. SOCIAL HISTORY: Nonsmoker. No ethanol. No illicit drug use. FAMILY HISTORY: Noncontributory. REVIEW OF SYSTEMS: Somewhat difficult to obtain due to his discomfort. Denies significant gastrointestinal-related complaints at this point. No nausea or diarrhea. PHYSICAL EXAMINATION: GENERAL: He has some tciwbkly-tm-fkktio distress. He is seemingly tracking fairly well. He is sitting kind of hunched over, gasping for breath. He is somewhat chronically ill. VITAL SIGNS: Temperature 98.8, pulse 95, respirations 18, blood pressure 141/64. SKIN: Warm, dry. No rashes. HEENT: He has got nasal cannula in place. Normocephalic. Extraocular muscles intact. NECK: Supple. LUNGS: Scattered coarse breath sounds. HEART: Distant, seemingly regular. Is borderline tachycardic. I do not appreciate a murmur. ABDOMEN: Mildly distended, soft. There are no overt peritoneal signs. GENITOURINARY AND RECTAL: Deferred. LABORATORY DATA: Blood cultures are sterile thus far. Troponin less than 0.06. Urinalysis unremarkable. CT chest as noted above: Bilateral segmental and subsegmental pulmonary emboli, extensive bilateral pulmonary airspace infiltrate consistent with pneumonia, mild mediastinal and hilar adenopathy. Coronavirus; initial test is not detected; a second test is pending. Electrolytes: Sodium 138, potassium 3.9, chloride 103, bicarb is 25, anion gap of 10, BUN and creatinine 23 and 1.4. Estimated GFR of 49. Chest x-ray: Cardiomegaly with bilateral infiltrates. There is some question of aspiration as well. Influenza antigen was negative. Electrolytes: Sodium 137, potassium 3.5, chloride 102, bicarb is 24, anion gap of 11, BUN and creatinine 20 and 1.3, glucose of 123. Albumin of 3.5, total protein 7.0. LFTs unremarkable. Lactic acid 1.8. CBC: White count of 13.2, H and H 17.0/49.5, platelets of 171. Differential unremarkable. Neutrophilia. ASSESSMENT: Pneumonitis. The patient has radiograph evidence of bilateral pulmonary embolism. It is not clear as to the source while he has got a hypercoagulable state, seemed to come on fairly rapidly within the last 12-24 hours prior to his admission. I agree to rule out COVID. I think we would continue the empiric therapy. Certainly appears to be of multifactorial [address] [place] [place] [address] CONSULTATION Name: DEMETRICE PAYNE Room: [address] IN [facility]#: [id number] Admission: 06/25/19 Attend Phys: Manisha Walter MD Discharge: Date of : 44 Report #: [id number] etiology. We will await his response to current approach. At this point, he remains critically ill. We will have to monitor closely. <ELECTRONICALLY SIGNED> By: Romero Rodriguez MD 06/28/19 0805 1112 1202Josantos Rodriguez MD /nt
[2019-06-28 08:09] VITALS: BP 145/57
--- NOTE | 2019-06-28 12:48 | EKG ---
[place] [address] ELECTROCARDIOGRAM REPORT Name: DEMETRICE PAYNE Room: [address] ADM IN ..#: [id number] Admission: 06/25/19 Attend Phys: Manisha Walter, Discharge: Date of : 44 Date of Service: 06/27/19 1754 Report #: [id number] THIS REPORT FOR: //name// 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 : 1940 Requested By: Catina Soria Order Number: [id number] Yovana MD: Odin Cabello Measurements Intervals [place] Rate: 84 P: SD: QRS: -3 QRSD: 96 T: 58 QT: 393 QTc: 465 Interpretive Statements Atrial fibrillation Ventricular premature complex Baseline wander in lead(s) II,aVR,aVF,V4 Compared to ECG 06/25/2019 03:13:26 Ventricular premature complex(es) now present Sinus rhythm no longer present Electronically Signed On 06-28-2019 12:46:53 CDT by Odin Cabello [email or web address] <ELECTRONICALLY SIGNED> By: Odin Cabello MD, [facility] 06/28/19 1246 1754 1754 Odin Cabello MD, [facility] /EPI
[2019-06-28 13:01] VITALS: BP 115/61
[2019-06-28 16:58] VITALS: BP 150/81
[2019-06-28 20:00] VITALS: BP 132/64
[2019-06-29 20:00] VITALS: BP 117/45
[2019-06-30] VITALS: BP 110/54
[2019-06-30 04:00] VITALS: BP 150/78
[2019-06-30 08:45] VITALS: BP 138/73
[2019-06-30] MEDS ORDERED: ELIQUIS5 MG PO (11:18)
[2019-06-30 12:53] VITALS: BP 138/73
[2019-06-30 14:00] VITALS: BP 138/73
[2019-06-30 14:07] VITALS: BP 138/73
[2019-06-30] MEDS ORDERED: CEFDINIR300 MG PO (14:25)
== END 2019-06-30 14:50 | disposition home health service (06) | DRG 871 ==
LOC: M.ERS 03:05 → M.ORTHSURG 04:39 → M.TBA-ER 04:39 → M.ORTHSURG 06:43
PROVIDERS: Emergency Medicine; Family Medicine; Internal Medicine; ADMIT Internal Medicine
DX: A41.9 Sepsis, unspecified organism (principal); J96.01 Acute respiratory failure with hypoxia; I26.99 Other pulmonary embolism without acute cor pulmonale; J18.9 Pneumonia, unspecified organism; M31.9 Necrotizing vasculopathy, unspecified; K21.9 Gastro-esophageal reflux disease without esophagitis; F32.9 Major depressive disorder, single episode, unspecified; E86.0 Dehydration; I10 Essential (primary) hypertension; Z96.652 Presence of left artificial knee joint; Z96.649 Presence of unspecified artificial hip joint; Z20.828 Contact with and (suspected) exposure to other viral communicable diseases; Z95.1 Presence of aortocoronary bypass graft; Z98.42 Cataract extraction status, left eye; Z98.41 Cataract extraction status, right eye; Z79.82 Long term (current) use of aspirin; Z79.01 Long term (current) use of anticoagulants; Z79.899 Other long term (current) drug therapy

== ENCOUNTER 2019-11-03 08:11 | Inpatient (IN) | payer MEDICARE, OTHER ==
[~2019-11-03] VITALS: Ht 167.6 cm; Wt 93.9 kg
[~2019-11-03 08:11] MED LIST changes: +CEFDINIR300 MG PO; +ELIQUIS5 MG PO; +IMDUR 30 MG TAB30 M1 PO
[2019-11-03 08:12] VITALS: BP 172/73
[2019-11-03] MEDS ORDERED: PROTONIX40 M2 PO (08:15)
[2019-11-03] MEDS ORDERED: REQUIP 0.25 M0.25 M1 PO (08:17)
[2019-11-03 08:44] LABS: ABSOLUTE BASOPHILS 0.1 thou/uL (0.0-0.2); ABSOLUTE EOSINOPHILS 0.1 thou/uL (0.0-0.7); ABSOLUTE LYMPHOCYTES 2.9 thou/uL (0.8-5.3); ABSOLUTE MONOCYTES 1.5 thou/uL (0.0-1.2); ABSOLUTE NEUTROPHILS 8.8 thou/uL (1.6-8.1); BASOPHILS 0.6 %; EOSINOPHILS 0.9 %; HEMATOCRIT 48.6 % (42.0-52.0); HEMOGLOBIN 16.8 gm/dL (14.0-18.0); LYMPHOCYTES 21.4 %; MCH 30.7 pg (26.0-34.0); MCHC 34.5 g/dL (28.0-37.0); MCV 88.8 fL (80.0-100.0); MONOCYTES 11.4 %; MPV 9.5 fl. (7.2-11.1); NUCLEATED RBCS 0 /100WBC; PLATELET COUNT* 206 thou/uL (150-400); POLYS 65.7 %; RBC 5.47 mil/uL (4.50-6.00); RDW-CV 13.3 % (10.5-14.5); WBC 13.4 thou/uL (4.0-11.0)
[2019-11-03 08:53] LABS: CALCIUM 9.2 mg/dL (8.5-10.1); CREATININE 1.5 mg/dL (0.6-1.3); POTASSIUM 4.1 mmol/L (3.5-5.1)
[2019-11-03 09:01] LABS: APTT 29.1 Seconds (25.0-31.3); INR 1.1; PROTIME 11.2 Seconds (9.20-11.50)
[2019-11-03 09:04] LABS: ALBUMIN 3.7 g/dL (3.4-5.0); TOTAL BILIRUBIN 0.9 mg/dL (<0.1-1.0); TOTAL PROTEIN 7.7 g/dL (6.4-8.2)
[2019-11-03 09:34] LABS: URINE BILIRUBIN NEGATIVE (Negative); URINE BLOOD TRACE (Negative); URINE CLARITY CLEAR; URINE COLOR YELLOW; URINE GLUCOSE-RANDOM NEGATIVE (Negative); URINE KETONES NEGATIVE (Negative); URINE LEUKOCYTES-REFLEX NEGATIVE (Negative); URINE NITRITE-REFLEX NEGATIVE (Negative); URINE PROTEIN NEGATIVE (Negative); URINE SPECIFIC GRAVITY 1.025 (1.005-1.030); URINE UROBILINOGEN 0.2 E.U./dl (0.2-1.0)
--- NOTE | 2019-11-03 10:42 | EKG ---
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 : 1940 Requested By: Storm Vega Order Number: [id number] MD: Odin Cabello Measurements Intervals [place] Rate: 88 P: 0 OR: 165 QRS: -7 QRSD: 113 T: 52 QT: 380 QTc: 460 Interpretive Statements Sinus rhythm with first degreee AV block Borderline intraventricular conduction delay Compared to ECG 06/27/2019 17:54:28 Atrial fibrillation no longer present Ventricular premature complex(es) no longer present Electronically Signed On 11-03-2019 10:42:02 CDT by Odin Cabello [email or web address] <ELECTRONICALLY SIGNED> By: Odin Cabello MD, FAC 11/03/19 1042 9 9 Odin Cabello MD, FAC /EPI
[2019-11-03 12:39] VITALS: BP 129/58
[2019-11-03 13:10] VITALS: BP 135/62
[2019-11-03 16:30] VITALS: BP 141/72
--- NOTE | 2019-11-03 16:53 | 2DMMODE ---
[place] [address] 2 D/M-MODE ECHOCARDIOGRAM Name: DEMETRICE PAYNE Room: [address] IN [facility]#: [id number] Admission: 11/03/19 Attend Phys: Grzegorz Jauregui, Discharge: Date of : 44 Date of Service: 11/03/19 1652 Report #: [id number] THIS REPORT FOR: cc: Ciro Burch MD, Matthew W. MD [place], Michael J. MD [facility] ~ APPROVED REPORT Study performed: 11/03/2019 14:46:13 EXAM: Comprehensive 2D, Doppler, and color-flow Echocardiogram Patient Location: In-Patient Room #: [facility] Status: routine BSA: 2.03 HR: 67 bpm BP: 135/62 mmHg Rhythm: NSR Other Information Study Quality: Good Indications Dyspnea 2D Dimensions IVSd: 12.60 (7-11mm) LVOT Diam: 24.01 (18-24mm) LVDd: 49.26 mm PWd: 12.35 (7-11mm) Ascending Ao: 30.79 (22-36mm) LVDs: 30.55 (25-40mm) Volumes Left Atrial Volume (Systole) LA ESV Index: 26.60 mL/m2 Aortic Valve AoV Peak Michael.: 1.27 m/s AO Peak Gr.: 6.46 mmHg LVOT Max P.67 mmHg AO Mean Gr.: 3.64 mmHg LVOT Mean P.73 mmHg LVOT Max V: 0.96 m/s AO V2 VTI: 29.33 cm LVOT Mean V: 0.60 m/s KIKE (VTI): 3.24 cm2 LVOT V1 VTI: 21.02 [place] [address] 2 D/M-MODE ECHOCARDIOGRAM Name: DEMETRICE PAYNE Room: [address] IN .R.#: [id number] Admission: 11/03/19 Attend Phys: Grzegorz Jauregui, Discharge: Date of : 44 Date of Service: 11/03/19 1652 Report #: [id number] E/A Ratio: 0.73 MV Decel. Time: 192.69 ms MV E Max Michael.: 0.59 m/s MV PHT: 55.88 ms MVA (PHT): 3.94 cm2 TDI E/Lateral E': 6.56 E/Medial E': 7.38 Medial E' Michael.: 0.08 m/s Lateral E' Michael.: 0.09 m/s Pulmonary Valve PV Peak Michael.: 0.78 m/s PV Peak Gr.: 2.41 mmHg Left Ventricle The left ventricle is normal size. There is normal LV segmental wall motion. Mild concentric left ventricular hypertrophy. Left ventricular systolic function is normal. LVEF is 55-60%. Grade I - abnormal relaxation pattern. Right Ventricle The right ventricle is normal size. The right ventricular systolic function is normal. Atria The left atrium size is normal. The right atrium size is normal. Aortic Valve The aortic valve is normal in structure. No aortic regurgitation is present. There is no aortic valvular stenosis. Mitral Valve The mitral valve is normal in structure. There is no mitral valve regurgitation noted. No evidence of mitral valve stenosis. Tricuspid Valve The tricuspid valve is normal in structure. There is no tricuspid valve regurgitation noted. Pulmonic Valve The pulmonary valve is normal in structure. Trace pulmonic regurgitation. Great Vessels The aortic root is normal in size. IVC [place] [address] 2 D/M-MODE ECHOCARDIOGRAM Name: DEMETRICE PAYNE Room: [address] IN [facility]#: [id number] Admission: 11/03/19 Attend Phys: Grzegorz Jauregui, Discharge: Date of : 44 Date of Service: 11/03/19 1652 Report #: [id number] collapses >50% with inspiration. Pericardium There is no pericardial effusion. <Conclusion> The left ventricle is normal size. Mild concentric left ventricular hypertrophy. Left ventricular systolic function is normal. LVEF is 55-60%. Grade I - abnormal relaxation pattern. IVC is normal in size and collapses >50% with inspiration. <ELECTRONICALLY SIGNED> By: Darren Gonzalez MD, FACC 11/03/191651 51 51 Darren Gonzalez MD, FACC /INF
[2019-11-03 20:00] VITALS: BP 126/57
[2019-11-04] VITALS (7 sets, daily range): BP systolic 116–126; BP diastolic 53–66
[2019-11-04 05:20] LABS: ABSOLUTE LYMPHOCYTES 2.8 thou/uL (0.8-5.3); ABSOLUTE MONOCYTES 0.7 thou/uL (0.0-1.2); ABSOLUTE NEUTROPHILS 8.9 thou/uL (1.6-8.1); HEMATOCRIT 47.6 % (42.0-52.0); LYMPHOCYTES 22.5 %; MCH 30.5 pg (26.0-34.0); MCHC 33.7 g/dL (28.0-37.0); MCV 90.6 fL (80.0-100.0); MONOCYTES 5.9 %; NUCLEATED RBCS 0 /100WBC; PLATELET COUNT* 200 thou/uL (150-400); POLYS 71.6 %; RBC 5.25 mil/uL (4.50-6.00); RDW-CV 13.4 % (10.5-14.5); WBC 12.4 thou/uL (4.0-11.0)
[2019-11-04 05:46] LABS: ANION GAP 7 mmol/L (7-16); BUN 25 mg/dL (7-18); CALCIUM 8.9 mg/dL (8.5-10.1); CHLORIDE 103 mmol/L (98-107); CO2 29 mmol/L (21-32); CREATININE 1.5 mg/dL (0.6-1.3); GLUCOSE 123 mg/dL (70-99); POTASSIUM 3.9 mmol/L (3.5-5.1); SODIUM 139 mmol/L (136-145)
[2019-11-04 06:10] LABS: CHOLESTEROL 156 mg/dL (<200); HDL CHOLESTEROL 50 mg/dL (>40); LDL CHOLESTEROL 99 mg/dL (<100); TC:HDL 3.1 Ratio (Not establshd); TRIGLYCERIDE 37 mg/dL (<150); VLDL 7 mg/dL (<40)
[2019-11-04 06:11] LABS: SERUM ASSESSMENT Clear
--- NOTE | 2019-11-04 08:20 | CON ---
[address] [address] CONSULTATION Name: DEMETRICE PAYNE Room: [address] IN .R.#: [id number] Admission: 11/03/19 Attend Phys: Grzegorz Jauregui MD Discharge: Date of : 44 Report #: [id number] THIS REPORT FOR: //name// cc: Ciro Burch MD, Matthew W. MD ~ THIS REPORT FOR: //name// CC: Grzegorz Rivera MD [facility]. Miguel Burch MD DATE OF SERVICE: 11/03/2019 INDICATION: Elevated troponin. HISTORY OF PRESENT ILLNESS: The patient is a 79-year-old gentleman admitted to the hospital after being seen in the Emergency Room this morning. Last Thursday evening, he started to feel like he had a scratchy throat. He used some throat spray and then had a persistent cough for the next 2 days. He had fevers. His cough is nonproductive, Four months ago, he had pneumonia. He has a history of coronary artery disease with coronary artery bypass grafting approximately 3 years ago. Late last year, he had stents placed. Historically, his left ventricular systolic function has been normal on noninvasive and invasive studies. At the time of interview, the patient denies any shortness of breath or chest pain. He is without specific cardiac complaint at this time. His CT chest and chest x-ray have concerning features. The chest x-ray suggests possible pneumonitis versus congestive heart failure. CT scan suggests lymphadenopathy and possible pulmonary nodules. PAST MEDICAL HISTORY: 1. Coronary artery disease with coronary artery bypass grafting in 01/2016. At that time, he had a GARY graft to the LAD, vein graft to a diagonal and marginal and vein graft to a PDA and posterolateral branch. Subsequent to that, he had percutaneous coronary intervention with drug-eluting stent placed to the ostium of the right coronary artery and a 75% mid right coronary stenosis. This was in 01/2019. Subsequently that is a month, he had drug-eluting stent placed to a 90% mid circumflex stenosis. By echocardiogram in 12/2018, he had normal LV systolic function with an EF of 55% -60%. 2. History of paroxysmal atrial fibrillation. 3. Chronically elevated troponin. 4. Nonunion of sternotomy. 5. [place] [address] CONSULTATION Name: DEMETRICE PAYNE Room: [address] IN [facility]#: [id number] Admission: 11/03/19 Attend Phys: Grzegorz Jauregui MD Discharge: Date of : 44 Report #: [id number] 6. Hypertension. 7. Gastroesophageal reflux disease. 8. Depression. 9. History of cerebrovascular accident in 2000. 10. Prostate cancer, status post radiation seed implant. 11. Right carotid endarterectomy. 12. Bilateral cataract surgery. 13. Left total knee replacement. 14. Hip replacement. 15. Hernia repair. FAMILY HISTORY: Noncontributory. SOCIAL HISTORY: The patient quit smoking remotely. He does not drink alcohol. HOME MEDICATIONS: Imdur 30 mg daily, fish oil 400 mg daily, buspirone 5 mg b.i.d., Prozac 10 mg at bedtime, CoQ10 100 mg daily, amlodipine 5 mg daily, Plavix 75 mg daily, Protonix 40 mg daily, ropinirole 0.25 mg daily. ALLERGIES: No known drug allergies. REVIEW OF SYSTEMS: A 14-point review of systems is positive for fever, cough and fatigue, otherwise unremarkable. PHYSICAL EXAMINATION: VITAL SIGNS: Stable. Blood pressure is 135/62, pulse 70 and regular. GENERAL: This is a pleasant elderly male, in no distress. Mood and affect appropriate. HEENT: Extraocular muscles intact. Mucous membranes are moist. NECK: Shows no jugular venous distention. There are no carotid bruits. CHEST: Reveals diminished breath sounds without obvious wheezes or rales. CARDIOVASCULAR: Reveals a regular rhythm with normal S1 and S2. I do not appreciate gallop or murmur. ABDOMEN: Reveals normal bowel sounds. The abdomen is soft, nontender. EXTREMITIES: Shows no edema. SKIN: Dry. LABORATORY DATA: A 12-lead EKG shows sinus rhythm without acute ST or T-wave abnormality. Labs are reviewed. Electrolytes within normal limits. BUN 16, creatinine 1.5, serum glucose 102. LFTs are within normal limits. Initial troponin 0.07, subsequently 0.08 and 0.07. NT-proBNP 1151. White blood cell count 13.4, hemoglobin 16.8, platelet count 206,000. Chest x-ray, bilateral hazy ground glass pulmonary opacities, possibly [facility] [address] [place] [address] CONSULTATION Name: DEMETRICE PAYNE Room: [address] IN ..#: [id number] Admission: 11/03/19 Attend Phys: Grzegorz Jauregui MD Discharge: Date of : 44 Report #: [id number] reflecting CHF with interstitial pulmonary edema, although bilateral pneumonitis is also a consider. Findings concerning for left hilar and infrahilar adenopathy. IMPRESSION AND RECOMMENDATIONS: 1. Coronary artery disease, presently stable. He is not having any symptoms to suggest coronary syndrome. History of components are minimally elevated and appeared to be chronically mildly elevated. I do not believe this represents acute coronary syndrome. 2. Febrile illness with cough. Chest x-ray supports the possibility of pneumonia. Would treat accordingly. 3. History of dyslipidemia. The patient does not appear to be on a statin agent at this time. We will check fasting lipid profile and treat accordingly. 4. Hypertension. Blood pressure appears to be adequately controlled at this time. Continue home regimen. 5. Paroxysmal atrial fibrillation. I have seen no recent episodes of atrial fibrillation. I am not sure from where the diagnosis or history of this comes from. We will review. It is possible this was only a perioperative phenomenon. We will not change treatment at this time. 6. Possible pulmonary masses and lymphedema. Suggest pulmonary consult. <ELECTRONICALLY SIGNED> By: Darren Gonzalez MD, FACC 11/04/19 0820 1624 1706Darren Gonzalez MD, FACC /nt
[2019-11-05 03:35] LABS: ABSOLUTE LYMPHOCYTES 2.3 thou/uL (0.8-5.3); ABSOLUTE MONOCYTES 0.4 thou/uL (0.0-1.2); ABSOLUTE NEUTROPHILS 13.1 thou/uL (1.6-8.1); BASOPHILS 0.1 %; HEMOGLOBIN 16.1 gm/dL (14.0-18.0); LYMPHOCYTES 14.6 %; MCH 30.4 pg (26.0-34.0); MCHC 33.6 g/dL (28.0-37.0); MCV 90.4 fL (80.0-100.0); MONOCYTES 2.8 %; MPV 9.5 fl. (7.2-11.1); NUCLEATED RBCS 0 /100WBC; PLATELET COUNT* 208 thou/uL (150-400); POLYS 82.5 %; RBC 5.31 mil/uL (4.50-6.00); RDW-CV 13.3 % (10.5-14.5); WBC 15.9 thou/uL (4.0-11.0)
[2019-11-05 03:54] LABS: ALBUMIN 3.3 g/dL (3.4-5.0); CALCIUM 8.7 mg/dL (8.5-10.1); CREATININE 1.7 mg/dL (0.6-1.3); MAGNESIUM 2.2 mg/dL (1.8-2.4); PHOSPHORUS* 3.5 mg/dL (2.5-4.9); POTASSIUM 3.8 mmol/L (3.5-5.1); TOTAL BILIRUBIN 0.6 mg/dL (<0.1-1.0); TOTAL PROTEIN 7.1 g/dL (6.4-8.2)
[2019-11-05 04:06] VITALS: BP 131/71
[2019-11-05 08:00] VITALS: BP 123/51
[2019-11-05 12:11] VITALS: BP 127/53
[2019-11-05 17:19] VITALS: BP 118/54
[2019-11-05 20:00] VITALS: BP 125/66
[2019-11-05 23:45] VITALS: BP 113/62
[2019-11-06 04:00] VITALS: BP 114/47
[2019-11-06 04:37] LABS: CALCIUM 8.7 mg/dL (8.5-10.1); CREATININE 1.5 mg/dL (0.6-1.3); MAGNESIUM 2.1 mg/dL (1.8-2.4); POTASSIUM 3.6 mmol/L (3.5-5.1)
[2019-11-06 08:00] VITALS: BP 126/50
[2019-11-06] MEDS ORDERED: PREDNISONE 10 M10 MG PO (09:02)
[2019-11-06] MEDS ORDERED: PROAIR HFA8.5 GM INH (09:02)
[2019-11-06] MEDS ORDERED: SINGULAIR 10 MG10 M1 PO (09:02)
[2019-11-06] MEDS ORDERED: LEVOFLOXACIN750 MG PO (09:02)
[2019-11-06 12:39] VITALS: BP 126/50
[2019-11-06 13:00] VITALS: BP 119/59
--- NOTE | 2019-11-06 18:16 | CON ---
[address] [address] CONSULTATION Name: DEMETRICE PAYNE Room: [address] IN M.R.#: [id number] Admission: 11/03/19 Attend Phys: Grzegorz Jauregui MD Discharge: 11/06/19 Date of : 44 Report #: [id number] THIS REPORT FOR: //name// cc: Ciro Burch MD, Matthew W. MD ~ THIS REPORT FOR: //name// CC: Grzegorz Burch DATE OF SERVICE: 11/04/2019 REQUESTING PHYSICIAN: Grzegorz Jauregui MD INDICATION FOR CONSULTATION: Pulmonary nodules/cough and shortness of breath. HISTORY OF PRESENT ILLNESS: A 79-year-old gentleman, past medical history includes a history of coronary artery disease. The patient does have a history of CABG in the past as well as stents. His left ventricular ejection fraction, however, is normal. He has had paroxysmal atrial fibrillation in the past; however, he in fact is anticoagulated now for pulmonary emboli. The patient was previously admitted to this hospital in June. At that time, he had pulmonary emboli, also had extensive bilateral infiltrates. There were some nodules also noted on the CT performed back in June. These are more visible now and this is discussed below in more detail. During the last hospitalization also, the patient had presented with a dry cough. His complaint is primarily the same now. He does not have much sputum production. To me, he appears short of breath and it appears that what he is describing as a cough at times is in fact shortness of breath, which is worse on exertion, but he perceives it as an urge to cough only and not a shortness of breath. There is no chest pain. He has had a scratchy throat. There is no fever or chills. There is no runny nose or sore throat. There is no increase in swelling of lower extremities or calf pain. The patient has had heartburn in the past, but this is under control at this time. He is not complaining of heartburn now. He does remain on Protonix. He is anticoagulated with Eliquis. He has had only a limited amount of disturbed sleep at night; however, he does have significant daytime sleepiness and he does at times doze off unintentionally during the day. REVIEW OF SYSTEMS: I asked him 14 questions for review of systems. The patient's review of systems was negative except as mentioned above. PAST MEDICAL HISTORY: Coronary artery disease, status post CABG, status post stents. Previous admission to this hospital in June. [place] [address] CONSULTATION Name: DEMETRICE PAYNE Room: [address] IN M.R.#: [id number] Admission: 11/03/19 Attend Phys: Grzegorz Jauregui MD Discharge: 11/06/19 Date of : 44 Report #: [id number] well as lung nodules and bilateral pulmonary emboli during the previous admission. Paroxysmal atrial fibrillation is reported to have merely remained in sinus rhythm. The reason he is on anticoagulation is pulmonary emboli in June. His left ventricular ejection fraction is 55-60%. He does have some diastolic dysfunction. His pulmonary artery systolic is not significantly elevated as his tricuspid valve looks unremarkable on the last echo. Nonunion of sternotomy, hyperlipidemia, hypertension, gastroesophageal reflux disease, depression, stroke in 2000, prostate cancer, status post radiation and seed implantation, right carotid endarterectomy, bilateral cataract surgery, left knee replacement, hip replacement, hernia repair. SOCIAL HISTORY: According to the records, the patient has a remote history of smoking. When I ask him now, he says he is a lifetime nonsmoker. No known history of heavy alcohol use or illegal drug use. CURRENT MEDICATIONS: List in [facility] reviewed. HOME MEDICATIONS: List also in [facility] reviewed. Note that he is not on any inhaler. There is no oxygen at home. He does not use a CPAP or BiPAP. He, however, is on Protonix as well as on Eliquis at home and also is on Plavix. ALLERGIES: No known drug allergies. FAMILY HISTORY: There is no pertinent family history. PHYSICAL EXAMINATION: GENERAL: He is alert, awake and oriented, although he is slow to respond to questions. VITAL SIGNS: He has a pulse of 58 and a blood pressure of 126/66. He is on 2 liters nasal cannula. He is saturating 95%. He is afebrile with a temperature of 36.4. His body mass index is elevated to 34. HEENT: Head is normocephalic and atraumatic. Pupils are equal and reactive. There is no throat erythema. There is no thrush in his throat. His airway is narrow. It is around Mallampati 3. NECK: Does not show raised JVP, asymmetry, mass, or lymph nodes. CHEST: Shows symmetrical expansion on inspection and palpation. On auscultation, breath sounds are bilaterally equal, but diminished. Expirations are prolonged. I do not hear any added sounds. HEART: Regular. There is no murmur. ABDOMEN: Soft and nontender. EXTREMITIES: Lower extremities show no edema, no calf tenderness. SKIN: Dry and intact. NEUROLOGICAL: Moves all extremities bilaterally equally and spontaneously with no focal deficit identified. LABORATORY DATA: The patient's creatinine is noted to be elevated [place] 1[place] [address] CONSULTATION Name: DEMETRICE PAYNE Room: [address] IN [facility].#: [id number] Admission: 11/03/19 Attend Phys: Grzegorz Jauregui MD Discharge: 11/06/19 Date of : 44 Report #: [id number] does have some elevation in creatinine at his baseline. His baseline creatinine is around 1.3-1.4. The rest of the chemistries are in [facility]. These are reviewed. CBC also in [facility] reviewed. Coagulation studies in [facility] reviewed. Urinalysis in [facility] reviewed. COVID-[address] chest is reviewed, compared to the previous CT in 06/2019. Pulmonary emboli have resolved. Infiltrates are significantly better. Nodules appear to be more prominent, but this is likely due to the fact that infiltrates have improved. There is a previous CT in 2011, which also reported to show pulmonary nodules; however, I am not able to review the films. ASSESSMENT/PLAN: 1. Acute respiratory insufficiency. It appears to me that the patient has previously undiagnosed bronchial asthma. The primary etiology of his cough and shortness of breath appears to be bronchospasm. In addition, however, he may have a respiratory tract infection as well. 2. Bronchial asthma exacerbation. Agree with Solu-Medrol as well as Kathrin. We will plan to follow Solu-Medrol with prednisone taper. I added Singulair. In due course, we will plan to add a long-acting beta-2 agonist as well as inhaled corticosteroid. We will plan to do PFTs as an outpatient later. 3. Pulmonary nodules. It appears likely to me that these were also present in June. They do appear to be more prominent and larger on the new CT, but this may be due to the fact that infiltrates have significantly improved. This may not actually represent a change in these nodules. We will treat his acute illness first. These nodules do need to be followed by serial CAT scans. We will see if I can get a direct comparison with the previous CT in 2011 as well, which also reported to show nodules. Considering the fact that the patient also has had prostate cancer in the past, once he has recovered from the current illness, we can also consider obtaining an outpatient PET scan. I would like to check connective tissue markers. We will also check a urine for histoplasma antigen. 4. Pulmonary infiltrates. These in fact look significantly better than May; however, some of these may be recurrent. Therefore, I agree with Levaquin as currently prescribed. 5. Hypersomnia. Recommend an outpatient sleep study later. 6. Gastroesophageal reflux disease. He is on a proton pump inhibitor. 7. History of pulmonary emboli. I do not see any pulmonary emboli on the new CT now. Watch creatinine because he got IV dye. I ordered a hypercoagulability panel to assess the appropriate length of his anticoagulation. Note that he in the past has had also paroxysmal atrial fibrillation and also is on Plavix per Cardiology. Previous venous Dopplers were negative. In case we do at some point decide to take him off anticoagulation, we will need to discuss this with the Cardiology Service as well. 8. Coronary artery disease, status post coronary artery bypass graft and stents. Left ventricular ejection fraction normal. Pulmonary artery systolic normal. [facility] [address] [place] [address] CONSULTATION Name: DEMETRICE PAYNE Room: [facility] IN [facility].#: [id number] Admission: 11/03/19 Attend Phys: Grzegorz Jauregui MD Discharge: 11/06/19 Date of : 44 Report #: [id number] 9. Paroxysmal atrial fibrillation. Per the records, he has mostly remained in a sinus rhythm. <ELECTRONICALLY SIGNED> By: Manan Moran MD 11/06/19 1816 1331 [id number] Moran MD /nt
[2019-11-07 13:07] LABS: ANTI-DNA SCREEN <1 IU/mL (0-9); ANTI-RNP 0.3 AI (0.0-0.9)
== END 2019-11-06 13:15 | disposition home health service (06) | DRG 177 ==
LOC: M.ERS 08:11 → M.2W 10:00 → M.TBA-ER 10:00 → M.2W 13:10
PROVIDERS: Emergency Medicine Emergency Medical Services; Internal Medicine; Internal Medicine Critical Care Medicine; ADMIT Internal Medicine; ATTEND Internal Medicine
DX: J15.6 Pneumonia due to other Gram-negative bacteria (principal); I21.A1 Myocardial infarction type 2; J96.21 Acute and chronic respiratory failure with hypoxia; I50.31 Acute diastolic (congestive) heart failure; J45.901 Unspecified asthma with (acute) exacerbation; N18.4 Chronic kidney disease, stage 4 (severe); I13.0 Hypertensive heart and chronic kidney disease with heart failure and stage 1 through stage 4 chronic kidney disease, or unspecified chronic kidney disease; J81.1 Chronic pulmonary edema; R55 Syncope and collapse; E78.00 Pure hypercholesterolemia, unspecified; K21.9 Gastro-esophageal reflux disease without esophagitis; F32.9 Major depressive disorder, single episode, unspecified; R56.9 Unspecified convulsions; R59.0 Localized enlarged lymph nodes; R91.1 Solitary pulmonary nodule; I25.10 Atherosclerotic heart disease of native coronary artery without angina pectoris; G47.10 Hypersomnia, unspecified; E78.5 Hyperlipidemia, unspecified; F41.9 Anxiety disorder, unspecified; I48.0 Paroxysmal atrial fibrillation; Z96.649 Presence of unspecified artificial hip joint; Z20.828 Contact with and (suspected) exposure to other viral communicable diseases; Z96.652 Presence of left artificial knee joint; Z95.1 Presence of aortocoronary bypass graft; I69.398 Other sequelae of cerebral infarction; Z98.42 Cataract extraction status, left eye; Z98.41 Cataract extraction status, right eye; Z95.5 Presence of coronary angioplasty implant and graft; Z79.01 Long term (current) use of anticoagulants; Z79.82 Long term (current) use of aspirin; Z79.899 Other long term (current) drug therapy; Z85.46 Personal history of malignant neoplasm of prostate; Z87.891 Personal history of nicotine dependence

== ENCOUNTER 2020-07-28 23:05 | Emergency (ER) | payer MEDICARE, OTHER ==
[~2020-07-28] VITALS: Ht 167.6 cm; Wt 90.3 kg
[~2020-07-28 23:05] MED LIST changes: +LEVOFLOXACIN750 MG PO; +PREDNISONE 10 M10 MG PO; +PROAIR HFA8.5 GM INH; +PROTONIX40 M2 PO; +REQUIP 0.25 M0.25 M1 PO; +SINGULAIR 10 MG10 M1 PO
[2020-07-29] MEDS ORDERED: HYDROCODON-ACE1 EAC7 PO (02:08)
[2020-07-29] MEDS ORDERED: CEPHALEXIN500 MG PO (02:08)
[2020-07-29 02:33] VITALS: BP 140/72
== END 2020-07-29 02:33 | disposition home or self-care (01) ==
LOC: M.ERS 23:05
DX: S51.011A Laceration without foreign body of right elbow, initial encounter (principal); S51.811A Laceration without foreign body of right forearm, initial encounter; I10 Essential (primary) hypertension; K21.9 Gastro-esophageal reflux disease without esophagitis; Z86.73 Personal history of transient ischemic attack (TIA), and cerebral infarction without residual deficits; Z95.1 Presence of aortocoronary bypass graft; Z96.652 Presence of left artificial knee joint; W25.XXXA Contact with sharp glass, initial encounter; Y93.89 Activity, other specified; Y92.89 Other specified places as the place of occurrence of the external cause; Y99.8 Other external cause status

== ENCOUNTER 2021-01-30 10:24 | Inpatient (IN) | payer MEDICARE, OTHER ==
[~2021-01-30] VITALS: Ht 167.6 cm; Wt 86.2 kg
[~2021-01-30 10:24] MED LIST changes: +CEPHALEXIN500 MG PO
[2021-01-30 10:35] VITALS: BP 178/80
[2021-01-30] MEDS ORDERED: PLAVIX 75 MG TA75 MG PO (10:40)
[2021-01-30] MEDS ORDERED: CHILDREN'S ASPI81 M1 PO (10:40)
[2021-01-30 10:59] LABS: ABSOLUTE EOSINOPHILS 0.1 thou/uL (0.0-0.7); ABSOLUTE LYMPHOCYTES 2.2 thou/uL (0.8-5.3); ABSOLUTE MONOCYTES 0.5 thou/uL (0.0-1.2); ABSOLUTE NEUTROPHILS 4.7 thou/uL (1.6-8.1); BASOPHILS 0.5 %; EOSINOPHILS 1.7 %; HEMATOCRIT 49.9 % (42.0-52.0); HEMOGLOBIN 16.6 gm/dL (14.0-18.0); LYMPHOCYTES 29.1 %; MCH 30.9 pg (26.0-34.0); MCHC 33.2 g/dL (28.0-37.0); MCV 93.2 fL (80.0-100.0); MONOCYTES 6.6 %; MPV 9.4 fl. (7.2-11.1); NUCLEATED RBCS 0 /100WBC; PLATELET COUNT* 214 thou/uL (150-400); POLYS 62.1 %; RBC 5.35 mil/uL (4.50-6.00); RDW-CV 13.9 % (10.5-14.5); WBC 7.5 thou/uL (4.0-11.0)
[2021-01-30 11:07] LABS: CALCIUM 8.5 mg/dL (8.5-10.1); CREATININE 1.2 mg/dL (0.6-1.3)
[2021-01-30 11:12] LABS: ALBUMIN 3.1 g/dL (3.4-5.0); TOTAL BILIRUBIN 0.7 mg/dL (<0.1-1.0); TOTAL PROTEIN 6.9 g/dL (6.4-8.2)
--- NOTE | 2021-01-30 14:33 | EKG ---
[place] [address] ELECTROCARDIOGRAM REPORT Name: DEMETRICE PAYNE Room: [place] [address] ADM IN [facility]#: [id number] Admission: 01/30/21 Attend Phys: Sandeep Dickinson Discharge: Date of : 44 Date of Service: 01/30/21 1035 Report #: [id number] THIS REPORT FOR: //name// [facility] ED Test Date: 2021-01-30 Test Time: 10:35:34 Pat Name: DEMETRICE PAYNE Department: Room: [facility] Gender: M Assessment Expert: EMILIANO : 1940 Requested By: Holland Walls Order Number: [id number] MD: Odin Cabello Measurements Intervals [place] Rate: 69 P: -12 [place]: 254 QRS: -14 QRSD: 91 T: 64 QT: 445 QTc: 477 Interpretive Statements Sinus rhythm Prolonged [place] interval Probable left atrial enlargement Inferior infarct, old Compared to ECG 11/03/2019 08:20:15 no change Electronically Signed On 01-30-2021 14:32:57 DEOILING MACHINE OPERATOR by Odin Cabello [email or web address] <ELECTRONICALLY SIGNED> By: Odin Cabello MD, [facility] 01/30/21 1432 1035 1035 Odin Cabello MD, [facility] /EPI
[2021-01-30 16:30] VITALS: BP 182/83
[2021-01-31] VITALS (9 sets, daily range): BP systolic 123–178; BP diastolic 66–86
[2021-01-31 04:57] LABS: CHOLESTEROL 161 mg/dL (<200); HDL CHOLESTEROL 43 mg/dL (>40); LDL CHOLESTEROL 104 mg/dL (<100); TC:HDL 3.7 Ratio (Not establshd); TRIGLYCERIDE 71 mg/dL (<150); VLDL 14 mg/dL (<40)
[2021-01-31 05:12] LABS: SERUM ASSESSMENT CLEAR
--- NOTE | 2021-01-31 12:17 | 2DMMODE ---
[place] [address] 2 D/M-MODE ECHOCARDIOGRAM Name: DEMETRICE PAYNE Room: [address] IN [facility]#: [id number] Admission: 01/30/21 Attend Phys: Sandeep Dickinson Discharge: Date of : 44 Date of Service: 01/31/21 1216 Report #: [id number] THIS REPORT FOR: cc: Ciro Burch MD, Matthew W. MD Liston, Michael J. MD [facility] ~ APPROVED REPORT Study performed: 01/31/2021 10:05:53 EXAM: Comprehensive 2D, Doppler, and color-flow Echocardiogram Patient Location: In-Patient Room #: er Status: routine BSA: 1.96 HR: 71 bpm BP: 172/84 mmHg Rhythm: NSR Other Information Study Quality: Good Indications CVA/TIA Echo Enhancing Agent Indication: Rule out Shunt Agent(s) / Amount(s) Used: Agitated Saline 10 cc 2D Dimensions IVSd: 12.12 (7-11mm) LVOT Diam: 21.14 (18-24mm) LVDd: 50.89 mm PWd: 11.84 (7-11mm) Ascending Ao: 32.98 (22-36mm) LVDs: 39.83 (25-40mm) Aortic Root: 29.28 mm Volumes Left Atrial Volume (Systole) LA ESV Index: 26.70 mL/m2 Aortic Valve AoV Peak Michael.: 1.22 m/s AO Peak Gr.: 5.98 mmHg LVOT Max P.67 mmHg AO Mean Gr.: 3.31 mmHg LVOT Mean P.78 [place] [address] 2 D/M-MODE ECHOCARDIOGRAM Name: DEMETRICE PAYNE Room: [address] IN [facility].#: [id number] Admission: 01/30/21 Attend Phys: Sandeep Dickinson Discharge: Date of : 44 Date of Service: 01/31/21 1216 Report #: [id number] LVOT Max V: 0.65 m/s AO V2 VTI: 23.91 cm LVOT Mean V: 0.40 m/s KIKE (VTI): 2.20 cm2 LVOT V1 VTI: 14.99 cm Mitral Valve E/A Ratio: 0.56 MV Decel. Time: 131.11 ms MV E Max Michael.: 0.48 m/s MV PHT: 38.02 ms MVA (PHT): 5.79 cm2 TDI E/Lateral E': 8.00 E/Medial E': 5.33 Medial E' Michael.: 0.09 m/s Lateral E' Michael.: 0.06 m/s Pulmonary Valve PV Peak Michael.: 0.73 m/s PV Peak Gr.: 2.15 mmHg Tricuspid Valve RAP Estimate: 5.00 mmHg TR Peak Gr.: 23.54 mmHg RVSP: 28.00 mmHg PA Pressure: 28.00 mmHg Left Ventricle The left ventricle is normal size. There is akinesis to dyskinesis of the basal inferior wall. Mild concentric left ventricular hypertrophy. Left ventricular systolic function is preserved. LVEF is 55-60%. Grade I - abnormal relaxation pattern. Right Ventricle The right ventricle is normal size. The right ventricular systolic function is normal. Atria Left atrium is mildly dilated. The interatrial septum is intact with no evidence for an atrial septal defect. Right atrium is mildly dilated. Aortic Valve The aortic valve is normal in structure. Mild aortic regurgitation. There is no aortic valvular stenosis. Mitral Valve The mitral valve is normal in structure. Mild mitral regurgitation. No evidence [place] [address] 2 D/M-MODE ECHOCARDIOGRAM Name: DEMETRICE PAYNE Room: [address] IN [facility]#: [id number] Admission: 01/30/21 Attend Phys: Sandeep Dickinson Discharge: Date of : 44 Date of Service: 01/31/21 1216 Report #: [id number] Tricuspid Valve The tricuspid valve is normal in structure. Mild tricuspid regurgitation. No pulmonary hypertension. Pulmonic Valve The pulmonary valve is normal in structure. Mild pulmonic regurgitation. Great Vessels The aortic root is normal in size. IVC is not well visualized. Pericardium There is no pericardial effusion. <Conclusion> The left ventricle is normal size. Mild concentric left ventricular hypertrophy. Left ventricular systolic function is preserved. LVEF is 55-60%. Grade I - abnormal relaxation pattern. There is akinesis to dyskinesis of the basal inferior wall. Left atrium is mildly dilated. Right atrium is mildly dilated. Mild aortic regurgitation. Mild mitral regurgitation. Mild tricuspid regurgitation. No pulmonary hypertension. The interatrial septum is intact with no evidence for an atrial septal defect. <ELECTRONICALLY SIGNED> By: Darren Gonzalez MD, FACC 01/31/211215 15 15 Darren Gonzalez MD, FACC /INF
[2021-02-01 02:48] VITALS: BP 151/83
[2021-02-01 04:06] LABS: GLYCOHEMOGLOBIN (HGB A1C) 5.5 % (4.8-5.6)
[2021-02-01 05:59] VITALS: BP 145/72
[2021-02-01 08:00] VITALS: BP 170/87
[2021-02-01 11:28] VITALS: BP 144/81
[2021-02-01] MEDS ORDERED: ASPIRIN325 PO (13:16)
[2021-02-01] MEDS ORDERED: FELODIPINE 5 MG5 M1 PO (13:16)
[2021-02-01] MEDS ORDERED: LEVOFLOXACIN500 MG PO (13:16)
[2021-02-01 14:53] VITALS: BP 144/81
== END 2021-02-01 15:15 | disposition home or self-care (01) | DRG 179 ==
LOC: M.ERS 10:24 → M.TBA-ER 12:15 → M.TBA 01-31 11:28 → M.2W 01-31 17:35
PROVIDERS: Family Medicine; ADMIT Internal Medicine; ATTEND Internal Medicine
DX: J69.0 Pneumonitis due to inhalation of food and vomit (principal); K21.9 Gastro-esophageal reflux disease without esophagitis; I10 Essential (primary) hypertension; Z86.73 Personal history of transient ischemic attack (TIA), and cerebral infarction without residual deficits; I25.10 Atherosclerotic heart disease of native coronary artery without angina pectoris; I50.9 Heart failure, unspecified

== ENCOUNTER 2021-03-03 22:53 | Inpatient (IN) | payer MEDICARE, OTHER ==
[~2021-03-03] VITALS: Ht 167.6 cm; Wt 90.4 kg
[~2021-03-03 22:53] MED LIST changes: +ASPIRIN325 PO; +CHILDREN'S ASPI81 M1 PO; +FELODIPINE 5 MG5 M1 PO; +LEVOFLOXACIN500 MG PO
[2021-03-03 22:56] VITALS: BP 163/87
[2021-03-03 23:34] LABS: ABSOLUTE BASOPHILS 0.2 thou/uL (0.0-0.2); ABSOLUTE EOSINOPHILS 0.1 thou/uL (0.0-0.7); ABSOLUTE LYMPHOCYTES 4.3 thou/uL (0.8-5.3); ABSOLUTE MONOCYTES 0.8 thou/uL (0.0-1.2); ABSOLUTE NEUTROPHILS 14.1 thou/uL (1.6-8.1); BASOPHILS 0.8 %; EOSINOPHILS 0.4 %; HEMATOCRIT 47.9 % (42.0-52.0); HEMOGLOBIN 15.8 gm/dL (14.0-18.0); LYMPHOCYTES 21.9 %; MCH 30.5 pg (26.0-34.0); MCV 92.3 fL (80.0-100.0); MONOCYTES 4.3 %; MPV 9.9 fl. (7.2-11.1); NUCLEATED RBCS 0 /100WBC; PLATELET COUNT* 207 thou/uL (150-400); POLYS 72.6 %; RBC 5.19 mil/uL (4.50-6.00); RDW-CV 13.7 % (10.5-14.5); WBC 19.5 thou/uL (4.0-11.0)
[2021-03-03 23:38] LABS: CALCIUM 8.2 mg/dL (8.5-10.1); CREATININE 1.6 mg/dL (0.6-1.3); POTASSIUM 3.8 mmol/L (3.5-5.1)
[2021-03-03 23:43] LABS: ALBUMIN 3.3 g/dL (3.4-5.0); MAGNESIUM 1.6 mg/dL (1.8-2.4); TOTAL BILIRUBIN 0.4 mg/dL (<0.1-1.0); TOTAL PROTEIN 6.4 g/dL (6.4-8.2)
[2021-03-03 23:58] LABS: PCO2 35.7 mmHg (35.0-45.0); pH 7.407 (7.340-7.450)
[2021-03-04 07:48] VITALS: BP 109/43
[2021-03-04 08:43] VITALS: BP 109/43
[2021-03-04 12:00] VITALS: BP 124/57
[2021-03-04 12:35] LABS: BE -3.6 mmol/L (-2 to +3); PCO2 32.1 mmHg (35.0-45.0); PO2 120.2 mmHg (75.0-100.0); pH 7.411 (7.340-7.450)
[2021-03-04 14:05] LABS: CALCIUM 7.9 mg/dL (8.5-10.1); CREATININE 1.1 mg/dL (0.6-1.3); POTASSIUM 4.2 mmol/L (3.5-5.1)
[2021-03-04 14:08] LABS: MAGNESIUM 1.7 mg/dL (1.8-2.4); PHOSPHORUS* 2.3 mg/dL (2.5-4.9)
--- NOTE | 2021-03-04 14:09 | EKG ---
[place] [address] ELECTROCARDIOGRAM REPORT Name: DEMETRICE PAYNE Room: [address] IN [facility]#: [id number] Admission: 03/04/21 Attend Phys: Manisha Walter, Discharge: Date of : 44 Date of Service: 03/03/212256 Report #: [id number] THIS REPORT FOR: //name// [facility] ED Test Date: 2021-03-03 Test Time: 22:57:44 Pat Name: DEMETRICE PAYNE Department: Room: [facility] Gender: M Hepatology Physician: [place] : 1940 Requested By: Yadira Jon Order Number: [id number] MD: Marcin Vasques Measurements Intervals [place] Rate: 118 P: 229 [place]: 44 QRS: -30 QRSD: 88 T: 48 QT: 419 QTc: 588 Interpretive Statements Sinus or ectopic atrial tachycardia Inferior infarct, old possible Prolonged QT interval Compared to ECG 01/30/2021 10:35:34 Prolonged QT interval now present Sinus rate has increased First degree AV block no longer present Myocardial infarct finding still present Electronically Signed On 03-04-2021 14:09:38 LIVE OUT NANNY by Marcin Vasques [email or web address] <ELECTRONICALLY SIGNED> By: Marcin Vasques MD, [facility] 03/04/21 1409 [id number] [id number] Marcin Vasques MD, [facility] /EPI
[2021-03-04 14:31] LABS: INFLUENZA A ANTIGEN Negative (Negative); INFLUENZA B ANTIGEN Negative (Negative)
--- NOTE | 2021-03-04 14:42 | NUR ---
Pt is admitted to the hospital for Covid on 03/04/21. Called - Kenyatta at: to complete assessment. Pt lives with in a house with a handicapp accessible ramp. Pt utlizes a walker and was previously indpendent with ADL's. Pt has a hx of [facility]. Pt has a hx of [facility]. Pt has a hx of [facility] and [facility] for SNF. Pt previously filled scripts at [facility] but reports she is in the process of switching him to [facility]. Pt saw his PCP a few months ago. reports she has DPOA paperwork for patient and she will try to remember to bring a copy to the hospital for us to have on file. CM to continue to follow for discharge planning.
[2021-03-04 16:00] VITALS: BP 129/58
--- NOTE | 2021-03-04 16:34 | NUR ---
PATIENT ADMITTED TO ROOM 102 THIS AM. ALERT AND ORIENTED. PATIENT ON 25L HHF WITH 55%. INCONTINENT OF LARGE AMOUNTS OF URINE, NO BM NOTED. IVF INFUSING. SPOKE WITH THIS AM AND UPDATED MED LIST GATHERED. DR. ALMANZA WAS NOTIFIED. CXR RESULTS SENT TO DR. ALMANZA AND NOTIFIED THAT ABG'S AVAILABLE. SPECIAL EVENTS PLANNER TRACING SR. NO SKIN BREAKDOWN NOTED. FALL RISK PROTOCOL IN PLACE.
[2021-03-04 19:54] VITALS: BP 150/76
[2021-03-05 00:31] VITALS: BP 145/74
[2021-03-05 04:25] VITALS: BP 125/53
[2021-03-05 07:31] VITALS: BP 103/49
--- NOTE | 2021-03-05 08:52 | 2DMMODE ---
[place] [address] 2 D/M-MODE ECHOCARDIOGRAM Name: DEMETRICE PAYNE Room: [address] IN [facility]#: [id number] Admission: 03/04/21 Attend Phys: Manisha Walter, Discharge: Date of : 44 Date of Service: 03/05/21 0852 Report #: [id number] THIS REPORT FOR: cc: Ciro Burch MD, Matthew W. MD Liston, Michael J. MD [facility] ~ APPROVED REPORT Study performed: 03/04/2021 15:21:54 EXAM: Comprehensive 2D, Doppler, and color-flow Echocardiogram Patient Location: In-Patient Room #: [facility] Status: routine BSA: 1.95 HR: 66 bpm BP: 109/43 mmHg Rhythm: NSR Other Information Study Quality: Good Indications Cardiomegaly Echo Enhancing Agent Indication: Rule out Shunt 2D Dimensions IVSd: 11.90 (7-11mm) LVOT Diam: 20.66 (18-24mm) LVDd: 46.68 mm PWd: 9.91 (7-11mm) Ascending Ao: 27.37 (22-36mm) LVDs: 28.21 (25-40mm) Aortic Root: 26.18 mm Volumes Left Atrial Volume (Systole) LA ESV Index: 35.00 mL/m2 Aortic Valve AoV Peak Michael.: 1.41 m/s AO Peak Gr.: 7.97 mmHg LVOT Max P.17 mmHg AO Mean Gr.: 4.36 mmHg LVOT Mean P.47 mmHg LVOT Max V: 0.89 m/[place] [address] 2 D/M-MODE ECHOCARDIOGRAM Name: DEMETRICE PAYNE Room: [address] IN [facility]#: [id number] Admission: 03/04/21 Attend Phys: Manisha Walter, Discharge: Date of : 44 Date of Service: 03/05/21 0852 Report #: [id number] V2 VTI: 29.00 cm LVOT Mean V: 0.55 m/s KIKE (VTI): 2.48 cm2 LVOT V1 VTI: 21.46 cm Mitral Valve E/A Ratio: 0.85 MV Decel. Time: 243.88 ms MV E Max Michael.: 0.65 m/s MV PHT: 70.73 ms MVA (PHT): 3.11 cm2 TDI E/Lateral E': 6.50 E/Medial E': 6.50 Medial E' Michael.: 0.10 m/s Lateral E' Michael.: 0.10 m/s Pulmonary Valve PV Peak Michael.: 0.83 m/s PV Peak Gr.: 2.74 mmHg Tricuspid Valve RAP Estimate: 5.00 mmHg TR Peak Gr.: 16.66 mmHg RVSP: 21.00 mmHg PA Pressure: 21.00 mmHg Left Ventricle The left ventricle is normal size. No obvious wall motion abnormalities. There is normal left ventricular wall thickness. Left ventricular systolic function is grossly normal. LVEF is 55-60%. Transmitral Doppler flow pattern suggests impaired LV relaxation. Right Ventricle The right ventricle is normal size. The right ventricular systolic function is normal. Atria Left atrium is at the upper limits of normal. The right atrium size is normal. Aortic Valve Mild aortic valve sclerosis. Trace aortic regurgitation. There is no aortic valvular stenosis. Mitral Valve The mitral valve is normal in structure. Trace mitral regurgitation. No evidence of mitral [place] [address] 2 D/M-MODE ECHOCARDIOGRAM Name: DEMETRICE PAYNE Room: [address]#: [id number] Admission: 03/04/21 Attend Phys: Manisha Walter, Discharge: Date of : 44 Date of Service: 03/05/21 0852 Report #: [id number] Tricuspid Valve The tricuspid valve is normal in structure. Trace tricuspid regurgitation. Mild pulmonary hypertension. Pulmonic Valve The pulmonary valve is normal in structure. Trace pulmonic regurgitation. Great Vessels The aortic root is normal in size. IVC is normal in size and collapses >50% with inspiration. Pericardium There is no pericardial effusion. <Conclusion> The left ventricle is normal size. There is normal left ventricular wall thickness. Left ventricular systolic function is grossly normal. LVEF is 55-60%. Transmitral Doppler flow pattern suggests impaired LV relaxation. No obvious wall motion abnormalities. Left atrium is at the upper limits of normal. Mild aortic valve sclerosis. Trace aortic regurgitation. Trace mitral regurgitation. Trace tricuspid regurgitation. Mild pulmonary hypertension. IVC is normal in size and collapses >50% with inspiration. <ELECTRONICALLY SIGNED> By: Darren Gonzalez MD, FACC 03/05/21 0852 1 Darren Gonzalez MD, FACC /INF
--- NOTE | 2021-03-05 10:02 | EKG ---
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: [place] : 1940 Requested By: Yadira Jon Order Number: [id number] MD: Marcin Vasques Measurements Intervals [place] Rate: 102 P: 198 VT: 128 QRS: -26 QRSD: 89 T: 56 QT: 442 QTc: 576 Interpretive Statements Ectopic atrial tachycardia, unifocal Inferior infarct, old suggested Prolonged QT interval Compared to ECG 03/03/2021 22:57:44 No significant changes Electronically Signed On 03-04-2021 14:10:26 TECHNICAL DATA ANALYST by Marcin Vasques [email or web address] <ELECTRONICALLY SIGNED> By: Marcin Vasques MD, [facility] 03/04/21 1410 1 1 Marcin Vasques MD, [facility] /EPI
[2021-03-05 12:00] VITALS: BP 113/54
[2021-03-05 12:45] LABS: HEMATOCRIT 43.7 % (42.0-52.0); HEMOGLOBIN 14.5 gm/dL (14.0-18.0); MCH 30.8 pg (26.0-34.0); MCHC 33.1 g/dL (28.0-37.0); MPV 10.1 fl. (7.2-11.1); NUCLEATED RBCS 0 /100WBC; PLATELET COUNT* 151 thou/uL (150-400); WBC 14.9 thou/uL (4.0-11.0)
[2021-03-05 12:56] LABS: APTT 37.2 Seconds (25.0-31.3); INR 1.1; PROTIME 11.7 Seconds (9.20-11.50)
[2021-03-05 12:57] LABS: ALBUMIN 2.8 g/dL (3.4-5.0); CALCIUM 8.4 mg/dL (8.5-10.1); CREATININE 1.2 mg/dL (0.6-1.3); TOTAL BILIRUBIN 0.4 mg/dL (<0.1-1.0)
[2021-03-05 13:13] LABS: ABSOLUTE LYMPHOCYTES 1.2 thou/uL (0.8-5.3); ABSOLUTE MONOCYTES 0.4 thou/uL (0.0-1.2); ABSOLUTE NEUTROPHILS 13.3 thou/uL (1.6-8.1)
[2021-03-05 13:14] LABS: PLATELET ESTIMATE ADEQUATE
--- NOTE | 2021-03-05 15:10 | NUR ---
CM FOLLOWUP PT NOT MED CLEAR AND ON 25L O2. CM TO FOLLOW FOR FUTURE DC NEEDS.
[2021-03-05 16:00] VITALS: BP 142/64
[2021-03-05 20:00] VITALS: BP 101/59
[2021-03-06 00:17] VITALS: BP 140/70
[2021-03-06 04:15] VITALS: BP 145/71
[2021-03-06 07:22] VITALS: BP 125/65
--- NOTE | 2021-03-06 16:33 | NUR ---
CM FOLLOWUP PT NOT MED CLEAR AND ON 25L O2. PT PENDING OT/PT EVALS WHEN O2 LEVELS DECREASE FOR DC PLANNING NEEDS. CM TO FOLLOW.
[2021-03-06 20:30] VITALS: BP 122/44
[2021-03-07] VITALS (8 sets, daily range): BP systolic 109–142; BP diastolic 50–64
[2021-03-07 12:09] LABS: CALCIUM 8.1 mg/dL (8.5-10.1); CREATININE 1.1 mg/dL (0.6-1.3); POTASSIUM 3.5 mmol/L (3.5-5.1)
[2021-03-07 12:15] LABS: PCO2 34.6 mmHg (35.0-45.0); PO2 91.4 mmHg (75.0-100.0); pH 7.463 (7.340-7.450)
--- NOTE | 2021-03-07 16:03 | NUR ---
CM FOLLOWUP PT NOT MED CLEAR YET. PT ON 3L O2. PRIOR TO DC, PT TO HAVE REST/EX TEST AND PT EVAL. PT TO DC HOME WITH HH PROVIDED BY [facility] ([phone]). CM TO FOLLOW.
[2021-03-07 18:54] LABS: APTT 36.2 Seconds (25.0-31.3); INR 1.1; PROTIME 11.4 Seconds (9.20-11.50)
[2021-03-08 04:00] VITALS: BP 142/49
[2021-03-08 08:00] VITALS: BP 142/63
[2021-03-08] MEDS ORDERED: DECADRON6 MG PO (09:40)
[2021-03-08] MEDS ORDERED: CEFDINIR300 MG PO (09:40)
[2021-03-08 12:19] VITALS: BP 118/54
--- NOTE | 2021-03-08 12:43 | CON ---
[address] [address] CONSULTATION Name: KERRYDEMETRICE Room: [address] IN .R.#: [id number] Admission: 03/04/21 Attend Phys: Manisha Walter MD Discharge: Date of : 44 Report #: [id number] THIS REPORT FOR: cc: Ciro Burch MD, Matthew W. MD Pervez, Adeel MD ~ DATE OF CONSULTATION: 03/07/2021 Consult has been requested by Dr. Dickinson. INDICATION FOR CONSULTATION: Bilateral infiltrates, possible COVID-19. HISTORY OF PRESENT ILLNESS: A 80-year-old gentleman, past medical history is as mentioned below. There is mention of bronchial asthma, on his records. When I asked him directly, the patient stated that he does not have a history of a cardiac or respiratory disease; however, he is also hard of hearing and may not have understood the questions correctly. The patient is now admitted initially on 03/03 close to midnight presented with respiratory failure. He has previously been vaccinated for COVID-19, but not received a booster. The patient initially was on 4 liters of oxygen, but quickly desaturated and required heated high-flow nasal cannula and since then, there has been improvement in his oxygen needs and currently down to 3 liters oxygen via nasal cannula. The patient has had 2 chest x-rays performed earlier and I did have another chest x-ray performed now as well. In summary, there are bilateral interstitial infiltrates and there does appear to be a component of pulmonary vascular congestion as well, which appears to have improved. He does report shortness of breath, but reports improvement. There is not much sputum. He currently does not have upper respiratory complaints. There is no swelling of lower extremities or calf pain. REVIEW OF SYSTEMS: For 12 points is negative except as mentioned above; however, as above, he is hard of hearing. PAST MEDICAL HISTORY: Atrial fibrillation, he is not on anticoagulation on the home medication list, bronchial asthma, hypertension, gastroesophageal reflux disease, depression, stroke, he received radiation beads in the prostate, but is reported to not have a prostatic malignancy, I do not have details available; coronary artery disease. There is a recent echocardiogram shows a normal left ventricular ejection fraction. There is mild TR. There is suspicion of mild pulmonary hypertension with pulmonary systolic is also mentioned to be 21. Restless leg syndrome, right carotid endarterectomy, bilateral cataract surgery, left total knee replacement, status post CABG in 2016, hip replacement, [place] [address] CONSULTATION Name: DEMETRICE PAYNE Room: [address] IN [facility]#: [id number] Admission: 03/04/21 Attend Phys: Manisha aWlter MD Discharge: Date of : 44 Report #: [id number] SOCIAL HISTORY: Lifetime nonsmoker. No known history of heavy alcohol use or illegal drug use. CURRENT MEDICATIONS: List in [employer] reviewed. [facility] FAMILY HISTORY: No pertinent family history. PHYSICAL EXAMINATION: GENERAL: He is alert, awake and oriented; however, he is hard of hearing and therefore it is difficult to communicate. He is currently on 3 liters nasal cannula. VITALS SINGS: In the records, reviewed. NECK: Does not show raised JVP. CHEST: Breath sounds are bilaterally equal. No added sounds. HEART: Regular. No murmur. ABDOMEN: Soft and nontender. EXTREMITIES: Lower extremities, no edema, no calf tenderness. LABORATORY DATA: The patient's chest x-rays are as described above. The patient's lab work is in [facility] and this is reviewed. ASSESSMENT/PLAN: 1. Acute hypoxemic respiratory failure. I feel that at this point, we have not fully defined the etiology. The chest x-rays are consistent with a component of fluid overload/increase in pulmonary vascular congestion, which now appears to have improved. It will be possible for this to entirely explain the patient's respiratory failure, but he does have interstitial infiltrates as well, which could have an infectious etiology. 2. Bilateral interstitial infiltrates as above. This could be from pulmonary vascular congestion alone, but the patient could have an infectious etiology as well. Workup for COVID-19 including a PCR performed twice is negative. COVID-19 antigen is negative. I will check tomorrow as to whether we can obtain COVID-19 antibodies, but if we do send antibodies, then we will need to verify that the antibiotics being sent with distinguish an infection from history of vaccination. In the meantime, we will also worked up for other etiologies of interstitial infiltrates, a viral respiratory panel as well as urine for legionella antigen as well as pneumococcal antigen and mycoplasma antibodies are ordered. The patient currently is on ceftriaxone, pending results. I would like to cover atypicals as well and therefore, I added azithromycin if possible, then obtain a sputum culture. I intend to obtain a CT chest. I am awaiting coags and a D-dimer and will review these and then decide as to whether to perform CT with or without IV DYE. Continue Decadron, reassess Remdesivir after [facility] [address] [place] [address] CONSULTATION Name: DEMETRICE PAYNE Room: [address] [facility] IN [facility]#: [id number] Admission: 03/04/21 Attend Phys: Manisha Walter MD Discharge: Date of : 44 Report #: [id number] Chest 3. Evaluation for thromboembolic phenomena/deep venous thrombosis prophylaxis. The patient currently is on full dose anticoagulation. As above, I would review coags and D-dimer. If the D-dimer is elevated, I will be inclined to do a CTA chest and I will obtain venous Dopplers as well and in that case, I may consider limited repeat echo to reassess the right heart pressures as well. 4. Fluid overload. It does appear from the chest x-rays. The patient had fluid overload, which is now better since the patient could possibly receive IV dye today or tomorrow and is currently stable. I held off on Lasix for now. We will plan on giving him more Lasix later and also evaluate etiologies of fluid overload. 5. Clostridium difficile prophylaxis, Lactinex. 6. Gastrointestinal prophylaxis, already on Protonix. Thanks for this consultation. <ELECTRONICALLY SIGNED> By: Manan Moran MD 03/08/21 1243 [id number] [id number] Moran MD /nt
[2021-03-08 12:45] VITALS: BP 118/54
--- NOTE | 2021-03-08 16:58 | NUR ---
CM FOLLOWUP PT MED CLEAR AND DC HOME 03/08/21 WITH HH PROVIDED BY [facility] ([phone]) AND OXYGEN FROM [facility] ([phone]).
[2021-03-11 22:06] LABS: MYCOPLASMA PNEUMONIA IgM <770 U/mL (0-769)
[2021-03-11 23:06] LABS: MYCOPLASMA PNEUMONIA IgG 436 U/mL (0-99)
== END 2021-03-08 13:57 | disposition home health service (06) | DRG 177 ==
LOC: M.ERS 22:53 → M.TBA-ER 03-04 03:43 → M.ORTHSURG 03-04 03:43
PROVIDERS: Internal Medicine; Internal Medicine Critical Care Medicine; Personal Emergency Response Attendant; ADMIT Internal Medicine; ATTEND Internal Medicine
PROC: XW033E5 Introduction of Remdesivir Anti-infective into Peripheral Vein, Percutaneous Approach, New Technology Group 5 (ICD-10-PCS; principal; 2021-03-04)
PROC: 5A0945A Assistance with Respiratory Ventilation, 24-96 Consecutive Hours, High Flow/Velocity Cannula (ICD-10-PCS; principal; 2021-03-04)
PROC: 05HC33Z Insertion of Infusion Device into Left Basilic Vein, Percutaneous Approach (ICD-10-PCS; 2021-03-05)
PROC: 5A0935A Assistance with Respiratory Ventilation, Less than 24 Consecutive Hours, High Flow/Velocity Cannula (ICD-10-PCS; 2021-03-08)
DX: U07.1 COVID-19 (principal); J96.01 Acute respiratory failure with hypoxia; J12.82 Pneumonia due to coronavirus disease 2019; I10 Essential (primary) hypertension; K21.9 Gastro-esophageal reflux disease without esophagitis; F32.9 Major depressive disorder, single episode, unspecified; I25.10 Atherosclerotic heart disease of native coronary artery without angina pectoris; G25.81 Restless legs syndrome; Z96.652 Presence of left artificial knee joint; E66.9 Obesity, unspecified; I48.91 Unspecified atrial fibrillation; J45.909 Unspecified asthma, uncomplicated; Z98.42 Cataract extraction status, left eye; Z98.41 Cataract extraction status, right eye; Z95.1 Presence of aortocoronary bypass graft; Z86.73 Personal history of transient ischemic attack (TIA), and cerebral infarction without residual deficits; Z68.32 Body mass index [BMI] 32.0-32.9, adult